=== PATIENT | male | born 1960 | race Caucasian/White ===

== ENCOUNTER 2016-11-28 08:32 | Day surgery (SDC) | payer OTHER ==
[2016-11-28] VITALS (10 sets, daily range): BP systolic 100–125; BP diastolic 74–84; PULSE 52–82; RESP 12–16; O2SAT 96–100
[~2016-11-28] VITALS: Ht 182.9 cm; Wt 109.9 kg
--- NOTE | 2016-11-28 07:23 | PCM.HPANE ---
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-, thinks possible now) Medications Blood Thinner: Coumadin, Lovenox Hypertension Medication: No Home Meds Incl Beta Liam: No Active Scripts Warfarin Sodium 5 Mg Tablet5 Mg PO DAILY #14 TABLET Ref 0 Prov:Ghazal Wood DO 07/16/16 Reported Medications Prednisone (PredniSONE)10 Mg [id number] Mg PO DAILY PRN For Pain Ref 0 11/28/16 Enoxaparin (Lovenox)120 Mg/0.8 Ml [id number] Mg SUBQ BID Ref 0 11/24/16 History History of ENT Problems?: No HEENT History: Denies:: Abnormal Airway Difficult Intubation Dysphagia Hearing Problem Sinus Problem TMJ Denture Type: None Teeth Condition: Within Normal Limits Hx of Heart Problems?: Yes Cardiovascular History: Positive for:: Thrombophlebitis (recently 06/2016 ending in PE both lungs) Denies:: Chest Pain Congestive Heart Failure Heart Murmur Hypertension Pacemaker Rheumatic Fever Valvular Heart Disease Hx of Respiratory Problem?: Yes Respiratory History: Positive for:: Use of C-PAP Machine Denies:: Asthma COPD Dyspnea (only with PE) Emphysema Hemoptysis Oxygen Administration Tuberculosis Use of Inhalers / NEBS Hx Neurologic Problems?: No Neurological History: Denies:: Alzheimer's Disease CVA Dementia Dizziness Headaches Multiple Sclerosis Parkinson's Disease Seizures Hx of GI Problems?: Yes Other GI Pertinent History: hx of lap band 2007 Hx of Problems?: Yes Genitourinary History: Denies:: HX of Hemodialysis Kidney Stones Urinary Tract Infection Other Pertinent History: hematuria current admission problem, kidney mass on left being investigated Male Hx: Denies:: Prostate Problems Scrotal Mass Testicular Surgery Skin History: Denies:: History Skin Disorders? Pressure Ulcers Hx Musculoskeletal Problems?: Yes Musculoskeletal History: Positive for:: Back Injury (back surgery L5 25 years ago) Joint Replacement (total knee replacement right knee) Musculoskeletal Trauma (plantar faciitis left ankle ) Hx of Psycho/Social Problems?: No Psycho Social History: Denies:: Anxiety Bipolar Disorder Hx Depression Hx Surgeries?: Yes (lap band, shoulder, ankle, back surgery) Hx Any Other Health Problems?: Yes Other History: Positive for:: Cancer (kidney being investigated) Hospitalization (surgeries PE) Denies:: Endocrine Disease Thyroid Disease History Blood Transfusions: Positive for:: Accept Blood Products? Denies:: Blood Transfusions Hx Diabetes: No Hx Alcohol Use: YesAlcoholic Drinks Per Day: 3-4 weeklyHx Substance Use: No Smoking Status: Never Smoker Have You Smoked inLast 12 mo: No Stop/Bang S-Snoring: Do You Snore Loudly: No T-Tired: feel tired, fatigued: Yes O-Obsered: Observed not breath: Yes P-Blood Pressure: treated: No B- Body Mass Index > 35 kg/m2: No A- Age over 50: Yes N- Neck Large Circumference: No G- Gender Male: Yes SUAD Total Score: 4 SUAD Risk Assessment: High Risk, =/>3 Yes SUAD Category 4 OutPt Procedure: Yes Risk Assessment Category Category 1A: Patient has history of documented sleep apnea, and HAS NOT received any narcotic, sedative or anesthesia administration during this stay. Category 1B: Patient has history of documented sleep apnea, and HAS received any narcotic , sedative or anesthesia administration during this stay Category 2: Patient has SUSPECTED Obstructive Sleep Apnea, and HAS received any narcotic , sedative or anesthesia administration during this stay. Category 3: Patient has SUSPECTED Obstructive Sleep Apnea and HAS NOT received narcotic, sedative or anesthesia administration during this stay. Category 4: Outpatient in Procedural Areas with known sleep apnea or who screen positive for High Risk via the STOP/BANG questionnaire. Exam Exam General Appearance: Alert, Oriented X3, Cooperative, No Acute Distress HEENT/AIRWAY: MP 2 Lungs: Clear to Auscultation, Normal Air Movement Heart: Exam Unremarkable, Regular Rate/Rhythm, No Murmurs/Rubs/Gallops Plan Impression Patient chart reviewed, patient interviewed and anesthestic plan with risks, benefits, and alternatives discussed, and informed consent obtained. ASA Physical Status: ASA2 Mod Systemic Disease Anesthetic Plan: GA Bene/Risks/Altern/Consents: Yes HP Complete Prior to Induction: Yes Michael Samayoa MD November 28, 2016 07:23
[~2016-11-28 08:32] MED LIST: Acetaminophen IV 1,000 MG in IV Premix 1 EACH IV ONE; CeFAZolin Inj 2 GM in IV Premix 1 EACH IV ONE; LOV120 SUBQ; Lactated Ringer's 1,000 ML IV ONE; WARF5TAB7 PO
[2016-11-28] MEDS ORDERED: fentaNYL-PF 50 mCg/mL 2 mL Inj ONE (08:33)
[2016-11-28] MEDS ORDERED: Propofol 10,000 mCg/mL 20 mL Inj ONE (08:33)
[2016-11-28] MEDS ORDERED: Dexamethasone 4 mg/mL Inj ONE (08:33)
[2016-11-28] MEDS ORDERED: Ondansetron 2 mg/mL 2 mL Inj ONE (08:33)
[2016-11-28] MEDS ORDERED: PRE10 PO (08:52)
[2016-11-28] MEDS ORDERED: Mitomycin Inj 20 MG in Syringe 1 EACH IRRIGATION ONE (08:55)
[2016-11-28] MEDS ORDERED: Belladonna Alk-Opium 60 mg Rectal Suppository RECTAL ONE (10:35)
[2016-11-28] MEDS ORDERED: Lactated Ringer's 1,000 ML IV SCH (10:48)
[2016-11-28] MEDS ORDERED: Lactated Ringer's 500 ML IV PRN (10:48)
[2016-11-28] MEDS ORDERED: MetoCLOpramide 5 mg/mL 2 mL Inj IVPUSH PRN (10:50)
[2016-11-28] MEDS ORDERED: HYDROmorphone 1 mg/mL Inj IVPUSH PRN (10:50)
[2016-11-28] MEDS ORDERED: Phenylephrine 10,000 mCg/mL Inj IVPUSH PRN (10:50)
[2016-11-28] MEDS ORDERED: fentaNYL-PF 50 mCg/mL 2 mL Inj IVPUSH PRN (10:50)
[2016-11-28] MEDS ORDERED: EPHEDrine Sulfate 50 mg/mL Inj IVPUSH PRN (10:50)
[2016-11-28] MEDS ORDERED: Ondansetron 2 mg/mL 2 mL Inj IVPUSH PRN (10:50)
[2016-11-28] MEDS ORDERED: Dexamethasone 4 mg/mL Inj IVPUSH PRN (10:50)
--- NOTE | 2016-11-28 15:54 | PCM.ANEP1 ---
Post Anesthesia Phase 1 PACU Phase 1 Assessment Vital Signs Vital Signs Date Time Temp Pulse Resp B/P Pulse Ox O2 Delivery O2 Flow Rate FiO2 11/28/16 12:56 36 55 16 100/74 99 Room Air 11/28/16 11:50 36.1 60 13 118/76 97 Room Air 11/28/16 11:45 52 12 118/76 100 Room Air 11/28/16 11:30 56 12 123/76 99 Nasal Cannula 2 11/28/16 11:25 36.0 59 12 119/83 99 Nasal Cannula 2 11/28/16 11:20 57 12 120/84 99 Nasal Cannula 2 11/28/16 11:15 62 12 123/81 97 Nasal Cannula 4 11/28/16 11:10 68 13 114/74 97 Nasal Cannula 4 11/28/16 11:05 36.1 82 13 115/81 96 Nasal Cannula 4 11/28/16 08:54 36.4 69 16 125/84 98 Room Air 11/28/16 08:54 CPAP/BIPAP Anesthetic Administered: GA Level of Alertness: Awake, talking LARRY's with Equal Strength: Yes Pain: No Nausea or Vomiting: No Oxygen Delivery: Nasal Cannula Lungs: Clear to Auscultation Dermatome Level: Full Sensation Complications: No Follow up Care: No Patient Instructions Provided: Yes Michael Samayoa MD November 28, 2016 15:54
--- NOTE | 2016-11-29 01:42 | OP ---
[address] [address] OPERATIVE REPORT PATIENT: LOGAN ESCALANTE : 1960 MR#: [id number] ADMIT: 11/28/2016 JOB ID: [id number] DATE OF SURGERY: 11/28/2016 PREOPERATIVE DIAGNOSIS(ES): 1. 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 2. History of hematuria. POSTOPERATIVE DIAGNOSIS(ES): 1. 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 2. History of hematuria. OPERATION PERFORMED: 1. Cystoscopy, bladder biopsy, and transurethral resection of bladder tumor. 2. Installation mitomycin-C (20 mg suspended in 20 cc normal saline). SURGEON: Luis Brown MD ANESTHESIOLOGIST: Michael Samayoa MD ANESTHESIA: General. FINDINGS: Urethra normal. External sphincter intact. Prostate 3.5 to 4 cm length with elevated median bar and obstruction. Bladder 1+ trabeculation. Normal orifices bilaterally. There is a low-grade papillary neoplasm emanating from the right anterior floor with spreading pattern circumferentially for up to 2 cm. The main lesion was cold cup resected and then the base also was cold cup resected. The entire area was cautery destroyed with superficial neoplasm destruction and hemostasis. PROCEDURE SUMMARY: The patient was positioned in supine and was administered general anesthetic. He was repositioned in semi-lithotomy, and lower abdomen, genitalia and groin were prepped and draped in sterile fashion. The 25-Welsh resectoscope was then passed in the lower urinary tract with findings as described above. He was then fitted with cold cup biopsy forceps and account executive sales representative samples were obtained as described above and submitted with biopsy for routine gross and microscopic examination. Next, working element was threaded with the button and the resected tumor base and circumferential tissue were cautery destroyed further. All abnormal appearing urothelium was cautery destroyed. Hemostasis of the margins were obtained via electrocautery. Tissue fragments were labeled as the sites of material and sent to pathology for routine gross and microscopic examination. The bladder was then left partially filled while instrumentation was removed. A 2-Welsh catheter was then inserted. Balloon was inflated to 10 cc and was placed to gravity drainage. Once the bladder contents had drained, 20 mg of mitomycin-C suspended in 20 cc of saline were then instilled in the bladder via the catheter and anticipated two-hour postoperative retention of the mitomycin-C.
--- NOTE | 2016-12-02 17:05 | PATH ---
SURGICAL PATHOLOGY Attending Physician:Luis Brown MD CASE STATUS: Signed Out PATIENT NAME: LOGAN ESCALANTE PID: [id number] : 1960 DATE COLLECTED:11/28/2016 18:24 SPECIMEN: 1: Bladder, Biopsy 2: Bladder, Biopsy CLINICAL HISTORY: BLADDER CANCER 1). RIGHT BLADDER FLOOR 2). BASE OF BLADDER FINAL DIAGNOSIS: 1. Right Bladder Floor, Biopsy: Malignant neoplasm with the following characteristics: Tumor type: Carcinoma. Histologic type: Urothelial Histologic grade: Low grade. Muscularis propria (detrusor muscle): Present and negative for tumor. Microscopic tumor extension: Negative for invasion into lamina propria or muscularis propria. Lymphovascular invasion: Not identified. Associated epithelial lesion: Not identified. Procedure: Biopsy, not otherwise specified. 2. Base of Bladder, Biopsy: Malignant neoplasm with the following characteristics: Tumor type: Carcinoma. Histologic type: Urothelial Histologic grade: Low grade. Muscularis propria (detrusor muscle): A small focus is present and is negative for tumor. Microscopic tumor extension: Negative for invasion into lamina propria or muscularis propria. Lymphovascular invasion: Not identified. Associated epithelial lesion: Not identified. Procedure: Biopsy, not otherwise specified. ICD10: C67.9 GROSS DESCRIPTION: The specimen is received in two formalin filled containers labeled with the patient's name. 1). The specimen is sublabeled "right bladder floor" and consists of multiple portions of tissue which aggregate to 0.4 x 0.4 x 0.3 CM. The specimen is entirely submitted in cassettes 1A. 2). The specimen is sublabeled "base of bladder" and consists of a 0.3 x 0.2 x 0.2 CM portion of tissue which is entirely submitted in cassette 2A. 11/28/2016 [facility] ICD-9 CODES: CPT CODES: 1: 00119 2: 70445 Electronically Signed Out Luba Ludwig MD [facility] Pathology [facility] [address], [place] [address] Technical component performed at [facility], [facility] [address], [place], [address]
[2016-12-30] MEDS ORDERED: PRE10 PO (15:54)
[2016-12-30] MEDS ORDERED: WARF5TAB7 PO (15:54)
[2016-12-30] MEDS ORDERED: TAMS0.4C98 PO (15:54)
== END 2016-11-28 23:59 | disposition home or self-care (01) ==
LOC: SAS 08:32
PROVIDERS: ATTEND Specialist
DX: C67.0 Malignant neoplasm of trigone of bladder (principal); R31.9 Hematuria, unspecified; N40.0 Benign prostatic hyperplasia without lower urinary tract symptoms; I82.501 Chronic embolism and thrombosis of unspecified deep veins of right lower extremity; Z79.01 Long term (current) use of anticoagulants
CPT/HCPCS: 52234; J0131; J0690; J1100; J2250; J2405; J3010; J7120

== ENCOUNTER 2016-12-07 18:02 | Emergency (ER) | payer OTHER ==
[~2016-12-07] VITALS: Ht 182.9 cm; Wt 110.0 kg
[~2016-12-07 18:02] MED LIST changes: -Acetaminophen IV 1,000 MG in IV Premix 1 EACH IV ONE; -CeFAZolin Inj 2 GM in IV Premix 1 EACH IV ONE; -Lactated Ringer's 1,000 ML IV ONE; +PRE10 PO
[2016-12-07 18:13] VITALS: BP 144/83; PULSE 79; RESP 16; O2SAT 97
--- NOTE | 2016-12-07 19:59 | ED.REPORT ---
HPI-Abd Pain M 40 and Over Date of Service December 07, 2016 ED Provider: Trevor Burton MD Patient is a who had bladder surgery for a cancer resection on 11/28/16 who presents to ED complaining of hematuria onset last night. He denies abdominal pain. Patient reports that he bled for a day after the surgery but that it stopped and began again last night. The patient saw his primary care physician earlier who recommended he come to the ED. He is currently taking Lovenox. Nursing Notes Stated Complaint: INTERNAL BLEEDING PER CANCER DR Chief Complaint: Male Abdominal Pain Nursing Notes Reviewed: Yes Allergies: Coded Allergies: No Known Allergies (Unverified , 11/28/16) Scheduled Enoxaparin (Lovenox) 120 Mg/0.8 Ml Syringe 120 MG SUBQ BID Warfarin Sodium (Warfarin Sodium) 5 Mg Tablet 5 MG PO DAILY Scheduled PRN Prednisone (PredniSONE) 10 Mg Tablet 10 MG PO DAILY PRN PRN For Pain General Time Seen by MD: 19:55 Chief Complaint Other (hematuria) Hx Obtained From: Patient Arrived By: Walk-in Sudden in Onset?: Yes Onset Occurred: Yesterday Symptom Duration: Since onset Recent Healthcare: Recent doctor visit, Recent hospitalization Similar Sx Previous: No Past Medical History Past Medical History PE in both lungs Past Surgical History bladder surgery for cancer right knee replacement back surgery lap band ankle surgery Smoking History Never Smoker Social History Alcohol Use: "Social" Drug Use: Denies drug use Ambulatory Status Independent Review of Systems Respiratory: Denies: Non-productive cough, Shortness of breath GI: Denies: Abdominal pain Male: Reports Hematuria Complete sys rev & neg: except as marked. Physical Exam Initial Vital Signs Vital Signs (First) Date Time Temp Pulse Resp B/P Pulse Ox O2 Delivery O2 Flow Rate FiO2 12/07/16 18:13 37.8 79 16 144/83 97 Room Air Initial VS: Reviewed General/Constitutional: Awake, Alert, No acute distress Respiratory / Chest: Atraumatic, Breath sounds NL, Breath sounds = bilat, No respiratory distress Cardiovascular: Heart rate NL, Regular rhythm, Heart sounds NL Abdomen: Atraumatic, Soft, Non-tender, No distention Back: Atraumatic, Full range of motion Head / Eyes: Atraumatic, Normocephalic, PERRL, EOMI Skin: Atraumatic, Color NL, No rash, Warm, Dry Male Genitourinary: Atraumatic, Inspection NL no urethral bleeding Neurologic: Oriented X3, Speech NL, No motor deficits, No sensory deficits Psychiatric: Affect NL, Mood NL Interpretation & Diagnostics Lab Results Interpretation Test 12/07/16 20:00 Hold Urine Received (Received) Re-Eval/Medical Decision Med Decision/Clinical Course 56-year-old male history of bladder cancer status post resection 2 weeks ago presenting with painless hematuria. He was told by his primary doctor to come in. He passed some clots earlier. He is voiding well. His urine is grossly bloody. His hemoglobin from this morning by primary doctor was 15. I discussed with urology who thought given normal postvoid residual of 43 and that he is making urine and voiding without difficulty may be discharged home plans to return if he is unable to void or any worsening abdominal pain. Is to follow-up with his primary doctor. Time of Eval: 20:24 Re-Evaluation/Progress Note: Discussed plan for discharge. The patient understands and agrees to the plan for discharge. All questions were addressed. Consultation : Consulted With: Urology Call Returned at: 20:16 Biomed Tech: Agrees with eval, Agrees with plan Note: Consult with Dr. Lala, urology, who recommends the patient be discharged, drink more fluids and return to the ED if he is unable to urinate. Counseled Regarding: Diagnosis, Lab results, Need for follow-up, When/why to return to ED Discharge & Departure Primary Impression: Hematuria Disposition: Home Vital Signs - All Vital Signs Date Time Temp Pulse Resp B/P Pulse Ox O2 Delivery O2 Flow Rate FiO2 12/07/16 18:13 37.8 79 16 144/83 97 Room Air )( All Prior VS Reviewed: Yes Condition: Stable Patient Instructions: Hematuria (GEN) Additional Instructions: Drink more fluids at home and rest. Follow up with your urologist next week. Please return to the emergency department if you develop any new or worsening symptoms including the inability to urinate. Referrals: Suleiman Noble MD (PCP) Larry Attestation Portions of this note were transcribed by Radha Cho. I, Dr. Derrek Wyatt personally performed the history, physical exam and medical decision-making; I reviewed and confirmed the accuracy of the information in the transcribed note. Signed by: Larry Lundy, 12/07/16 and 2018 copies to: Suleiman Noble MD, Ben M MD December 07, 2016 19:59 Lindy Cho December 07, 2016 20:20
[2016-12-30] MEDS ORDERED: PRE10 PO (15:54)
[2016-12-30] MEDS ORDERED: WARF5TAB7 PO (15:54)
[2016-12-30] MEDS ORDERED: TAMS0.4C98 PO (15:54)
== END 2016-12-07 21:01 | disposition home or self-care (01) ==
LOC: SED 18:02
DX: R31.9 Hematuria, unspecified (principal); Z98.890 Other specified postprocedural states; Z86.711 Personal history of pulmonary embolism; Z79.01 Long term (current) use of anticoagulants

== ENCOUNTER 2016-12-17 21:17 | Observation (INO) | payer OTHER ==
[~2016-12-17] VITALS: Ht 198.1 cm; Wt 110.1 kg
[2016-12-17 21:21] VITALS: BP 126/84; PULSE 86; RESP 16; O2SAT 97
--- NOTE | 2016-12-17 22:49 | ED.REPORT ---
HPI-Abd Pain M 40 and Over Date of Service December 17, 2016 ED Provider: Dr. Wyatt Pt is a 56 year old male with a hx of bladder cancer who was sent to the ED by his urologist with concerns for passing of large clots in his Watson catheter. Pt states that he is several weeks post-op for a mass removal from his bladder. He reports that he was unable to urinate several days ago and when he was able to urinate it was extremely painful and full of blood. He went to his urologist who placed a catheter yesterday. He states that he has noticed many large clots being passed, as well as blood leaking around the site of the catheter. He reports that he is taking Lovenox from previous PEs. He denies any dizziness, chest pain, shortness of breath or any other complaints. Nursing Notes Stated Complaint: INTERNAL BLEEDING/PASSING BLOOD CLOTS Chief Complaint: Male Abdominal Pain Nursing Notes Reviewed: Yes Allergies: Coded Allergies: No Known Allergies (Unverified , 12/18/16) Scheduled Enoxaparin (Lovenox) 120 Mg/0.8 Ml Syringe 120 MG SUBQ BID General Time Seen by MD: 22:49 Chief Complaint Urinary catheter pain Hx Obtained From: Patient Arrived By: Walk-in Sudden in Onset?: Yes Onset Occurred: More than a week ago... Symptom Duration: Since onset Location: : Diffuse Severity: Current: Mild Severity: Maximum: Severe Similar Sx Previous: Yes Past Medical History Past Medical History PE in both lungs Bladder cancer Past Surgical History bladder surgery for cancer right knee replacement back surgery lap band ankle surgery Smoking History Never Smoker Social History Alcohol Use: "Social" Drug Use: Denies drug use Ambulatory Status Independent Review of Systems Constitutional: Denies: Chills, Fever, Malaise, Weakness - generalized Respiratory: Denies: Non-productive cough, Shortness of breath, Wheezing Cardiovascular: Denies: Chest pain, Syncope GI: Denies: Abdominal pain, Constipation, Diarrhea, Nausea, Vomiting Male: Reports Dysuria, Reports Flank pain, Reports Hematuria Musculoskeletal: Denies: Back pain Complete sys rev & neg: except as marked. Physical Exam Initial Vital Signs Vital Signs (First) Date Time Temp Pulse Resp B/P Pulse Ox O2 Delivery O2 Flow Rate FiO2 12/17/16 21:21 36.7 86 16 126/84 97 Initial VS: Reviewed Head / Eyes: Atraumatic, Normocephalic, PERRL Skin: Warm, Dry, No cyanosis Neurologic: Alert, Oriented, Nonfocal General/Constitutional: Awake, Alert, No acute distress, Well appearing, Well developed Respiratory / Chest: Atraumatic, Breath sounds NL, Breath sounds = bilat Cardiovascular: Heart rate NL, Regular rhythm, Heart sounds NL, No gallop, No murmurs, No rubs Abdomen: Atraumatic, Soft, Non-tender Large amount of bright red blood with clots present in his catheter bag Back: Atraumatic, Inspection NL Interpretation & Diagnostics Lab Results Interpretation Result Diagram: 12/17/16 2345 12/17/16 2345 Test 12/17/16 23:45 White Blood Count 8.4th/mm3 (3.8-10.1) Red Blood Count 4.49mil/mm3 (4.40-5.80) Hemoglobin 12.7g/dL (13.8-17.2) Hematocrit 38.4% (41.0-50.0) Mean Corpuscular Volume 85.5fL (81-100) Mean Corpuscular Hemoglobin 28.3pg (27.0-35.0) Mean Corpuscular Hemoglobin Concent 33.1% (32.0-37.0) Red Cell Distribution Width 13.6% (12.3-15.4) Platelet Count 274bil/L (150-400) Neutrophils (%) (Auto) 49.2% (40-74) Lymphocytes (%) (Auto) 37.3% (14-46) Monocytes (%) (Auto) 10.8% (4-12) Eosinophils (%) (Auto) 1.7% (0-5) Basophils (%) (Auto) 0.5% (0-3) Prothrombin Time 9.5sec (8.1-12.5) Prothromb Time International Ratio 0.89ratio Activated Partial Thromboplast Time 30.4sec (22.8-33.0) Sodium Level 140mEq/L (134-144) Potassium Level 4.0mEq/L (3.5-5.2) Chloride Level 102mEq/L (97-108) Carbon Dioxide Level 25mmol/L (18-29) Blood Urea Nitrogen 13mg/dL (6-24) Creatinine 0.86mg/dL (0.76-1.27) Estimat Glomerular Filtration Rate 98mL/min (>59) Glucose Level 129mg/dL (60-99) Calcium Level 8.9mg/dL (8.5-10.1) Iron Level 40ug/dL (35-150) Total Iron Binding Capacity 334ug/dL (250-450) Percent Iron Saturation 12%sat (15-50) Unsaturated Iron Binding 294ug/dL Ferritin 67ng/mL (30-400) Total Bilirubin 0.3mg/dL (0.0-1.2) Aspartate Amino Transf (AST/SGOT) 24U/L (0-50) Alanine Aminotransferase (ALT/SGPT) 84U/L (0-44) Alkaline Phosphatase 43U/L (25-150) Total Protein 6.9g/dL (6.4-8.4) Albumin 4.1g/dL (3.4-5.0) Hold Bolton Top Tube Received (Received) Re-Eval/Medical Decision Med Decision/Clinical Course 56-year-old with a recent TURBT for bladder cancer, now obstructing his Watson with bleeding and clots. He is on Lovenox, with a prior history of DVT. A triple-lumen was placed and lavaged again. He is admitted to the hospital for ongoing lavage, discontinuation of his Lovenox, with SCDs to substitute. Discussed with Dr. Brown who will see him in consult as morning. Nothing by mouth status for possible cystoscopy later today, once the Lovenox has worn off. Source of Hx: Old records Time of Eval: 23:50 Re-Evaluation/Progress Note: Pt is rechecked and informed of his diagnosis and the plan to admit him at this time. He understands and agrees, all questions are addressed. Consultation #1: Referral / Consult Name: Luis Brown MD Consulted With: Urology Call Returned at: 00:23 Kennel Hand: Will see patient, Agrees with eval, Agrees with plan Consultation #2: Referral / Consult Name: Rah Robin MD Consulted With: Hospitalist Call Returned at: 00:30 Kennel Hand: Will see patient, Agrees with plan, Accepts admit Counseled Regarding: Diagnosis, Lab results, Need for admission Discharge & Departure Primary Impression: Hematuria Disposition: ADMITTED TO HOSPITAL Vital Signs - All Vital Signs Date Time Temp Pulse Resp B/P Pulse Ox O2 Delivery O2 Flow Rate FiO2 12/17/16 21:21 36.7 86 16 126/84 97 )( All Prior VS Reviewed: Yes Condition: Stable Referrals: Suleiman Noble MD (PCP) Alexibpreeti Attestation Portions of this note were transcribed by Marcia Devries. I, Dr. Wyatt personally performed the history, physical exam and medical decision-making; I reviewed and confirmed the accuracy of the information in the transcribed note. Signed by: Larry Hassan, 12/17/2016 [Time]. copies to: Suleiman Noble MD, Christopher W MD December 17, 2016 22:49 GISELL DEVRIES December 17, 2016 23:11
[2016-12-18 00:07] LABS: Mean Corpuscular Hemoglobin 28.3 pg (27.0-35.0); Mean Corpuscular Volume 85.5 fL (81-100)
[2016-12-18 00:08] LABS: BASOPHILS % (AUTO) 0.5 % (0-3); EOSINOPHILS % (AUTO) 1.7 % (0-5); MONOCYTES % (AUTO) 10.8 % (4-12); NEUTROPHILS % (AUTO) 49.2 % (40-74); Platelet Count 274 bil/L (150-400)
[2016-12-18 00:21] LABS: INR 0.89 ratio
--- NOTE | 2016-12-18 00:49 | PCM.HPMED ---
Subjective Date of Service December 18, 2016 Primary Provider: Admitting Physician: Primary Care Physician: Suleiman Noble MD Attending Physician: Admit Status: From the Emergency Department Chief Complaint: blood in urine History of Present Illness: 56-year-old man with past history remarkable for low-grade urothelial carcinoma of the bladder, left renal neoplasm of unknown behavior, bilateral pulmonary emboli likely secondary to hypercoagulable state presents with gross hematuria for more than one week. The patient had a procedure by urologist Dr. Brown on November 28 for his urothelial carcinoma and since that time the patient has had gross hematuria and states that he may have only had 4 normal appearing urinations. Approximately one week ago the patient began to notice difficulty with urination attributed to significant blood clot burden. The patient denies pain other than at his penis when passing blood clots. Dr. Brown saw the patient December 17 and recommended that he come in to be evaluated at [facility]. The patient has been on Lovenox and warfarin since being diagnosed with bilateral pulmonary emboli in June 2016. The patient was converted to Lovenox prior to the urologic procedure on November 28. The patient was recently being bridged back to warfarin however his oncologist believes with the upcoming procedures for his bladder cancer and left renal neoplasm he should remain on Lovenox only. Review of Systems: A comprehensive of the review of systems was obtained and all negative except for what is included in the history of present illness. Allergies Coded Allergies: No Known Allergies (Unverified , 12/18/16) Home Medications Enoxaparin 120 MG SUBQ BID Discontinued warfarin bridge at last oncology appointment 12/11 PMH hypercoagulable state with pulmonary emboli in both lungs and DVT low grade bladder urothelial carcinoma possible left sided renal cell carcinoma nonmelanoma skin cancer Central Sleep Apnea Surgical History bladder surgery for low grade urothelial carcinoma right knee reconstruction laminectomy lumbar back surgery Bariatric lap band surgery 2007 left ankle surgery shoulder surgery Family History Father had a stroke at 70yo and is still alive at 76yo Mother at 46yo due to esophageal perforation Sister 49yo healthy Son 27yo healthy Social History Occupation: general education professor auto sales Hx Alcohol Use: Yes Alcoholic Drinks Per Day: <1 Hx Substance Use: No Hx Tobacco Use: No Smoking Status: Never Smoker Living Arrangement: with Family ( 32years) Exam Vital Signs Vital Sign - Last Date Time Temp Pulse Resp B/P Pulse Ox O2 Delivery O2 Flow Rate FiO2 12/17/16 21:21 36.7 86 16 126/84 97 Exam GEN: Awake, alert, and in no acute distress HEENT: Atraumatic, Normocephalic, no sclera icterus, pale conjunctiva, moist mucous membranes Neck: Supple with full ROM, no JVD, no carotid bruits Respiratory: Clear to auscultation bilaterally without any wheezing rales or rhonchi noted Cardiovascular: Regular rate and rhythm at time of exam, with no murmurs, gallops or rubs appreciated Abdomen / GI: notable bruising in right lower quadrant, Soft with 2cm firm nodule in right upper quadrant under 3cm horizontal scar consistent with prior lap band procedure, Non-tender, normoactive bowel sounds Skin: Warm, Dry, and intact Neurologic: Alert, Oriented, Nonfocal Psychiatric: Mood/affect normal, Behavior normal, Normal thought content Extremity: No edema, cyanosis or clubbing, pulses intact bilaterally at radial and dorsalis pedis : patel in place with gross hematuria Lab and Diagnostics Result Diagram: 12/17/16 2345 12/17/16 2345 X-Rays, CTs and MRIs CT ABDOMEN RENAL PROTOCOL IMPRESSION: 1. A 2.1 x 2.0 cm lobulated, hypoenhancing mass in the inferior pole of the left kidney, highly suspicious for renal cell carcinoma. 2. A 7 mm exophytic nodule in the superior pole of the right kidney demonstrates mild enhancement. Because of small size, this nodule could be a small complex cyst or solid mass. 3. No evidence for jamila or distant metastasis. 4. Scattered colonic diverticula. No evidence for acute diverticulitis. 5. Small hiatal hernia. Dictated by: Vijay Chan M.D. on 11/17/2016 at 8:18 Approved by: Vijay Chan M.D. on 11/17/2016 at 8:33 Assessment & Plan 56-year-old man with past history remarkable for low-grade urothelial carcinoma of the bladder, left renal neoplasm of unknown behavior, bilateral pulmonary emboli likely secondary to hypercoagulable state presents with gross hematuria for more than one week. 1) acute hematuria - Hgb 12.7 - history of recent cystoscopy procedure November 28 and diagnosis of low grade urothelial carcinoma - patient also has imaging showing a [id number] left renal mass possibly consistent with renal cell carcinoma - hold lovenox - nursing order for continual bladder flush through a [address] in [address] - Urology Dr. Brown consulted from ED will see patient in the AM - Patient is NPO until seen by surgery in the AM - UA ordered and pending 2) low grade urothelial carcinoma, stable - being followed by oncology Dr. Woods 3) bilateral pulmonary emboli, chronic - likely due to hypercoagulable state given multiple neoplasm - patient has been on anticoagulation since being diagnosed in June approximately 6 months ago - hold Lovenox until after urologic procedure 12/18 - patient likely to remain on anticoagulation lobsterman until resolution of oncologic processes - being followed by oncology Dr. Woods 4) left renal neoplasm of unknown behavior, stable - patient to have an MRI further evaluation on MondayDecember 21 - Urology Dr. Brown following - being followed by oncology Dr. Woods 5) obstructive sleep apnea, chronic - O2 monitoring 6) acute blood loss anemia, stable - anemia panel with ferritin, iron, TIBC Patient is admitted for observation status given the current primary diagnosis the necessary required treatments and any possible complications expected length of stay is less than 2 nights. Pain Evaluation: Adequate Pain Control GI Prophylaxis: Not indicated VTE Prophylaxis Indicated: Contraindicated VTE Mechanical Devices: Intermittant Pneumatic CD Resuscitation Status: CPR: Attempt Resuscitation Attending Statement The patient was seen and examined together with Dr. Mares on 12/18 and I agree with the history, exam and plan as outlined in the note above. Yair Mares DO December 18, 2016 00:49 Rah Robin MD December 18, 2016 03:32
[2016-12-18] MEDS ORDERED: Ondansetron 2 mg/mL 2 mL Inj IVPUSH PRN (01:00)
--- NOTE | 2016-12-18 02:24 | NUR ---
admission patient admitted to room 3020. oriented to room and call light. tv and phone. ambulates independently. steady gait. [address] way patel irrigant is patent. light hernandez red urine patent to patel bag. secured catheter with cath secure. meatus of penus is very tender to touch. blood leaking from it when ambulatory. patient in and out of bathroom frequently, passing flatus, constipated. npo. reviewed fall precautions. verbalized understanding.
[2016-12-18 02:30] VITALS: BP 123/78; PULSE 60; RESP 18; O2SAT 98
[2016-12-18 03:39] LABS: Unsaturated Iron Binding 294 ug/dL
--- NOTE | 2016-12-18 05:00 | NUR ---
bladder irrigant patient had 6000 bladder irrigant in 6800 output to patel. the difference is 800 out.
--- NOTE | 2016-12-18 06:38 | NUR ---
bladder irrigation bladder irrigant slowed to a stop. irrigated multiple times with saline and piston syringe. irrigation now patent. pale urine to bag patient has alot of discomfort at the meatus of the penis. any movement of the catheter and he shows signs of increased pain. notified night resident. asked for lidocaine jelly.
[2016-12-18] MEDS ORDERED: Lidocaine 2% 6mL Topical Jelly TOPICAL ONE (06:40)
--- NOTE | 2016-12-18 12:40 | NUR ---
Bladder irrigation Bladder irrigation totals = 52658 mls in [address]372 mls out. Initially out put was dark red, color has changed to light pink at this time, rate has been slowed to a drip. Pt is NPO, has no IV fluids ordered at this time. Pt awaiting Consult from Dr Brown for urology plan of care. Dr Luke notified of fluid discrepancy, new order generated for IV fluids. Call light in place, will continue to monitor. Addendum: 12/18/16 at 1946 by KWAKU OWENS RN [id number] bladder irrigant in - 11347 fluid out. Difference of 200.
[2016-12-18] MEDS ORDERED: D5 0.45% NaCl + KCl 20 mEq/L 1,000 ML IV ONE (12:50)
[2016-12-18 14:07] VITALS: BP 119/75; PULSE 72; RESP 18; O2SAT 95
[2016-12-18] MEDS ORDERED: Heparin 5,000 Unit/mL Inj IVPUSH PRN (14:30)
[2016-12-18] MEDS ORDERED: Heparin 25K Unit/500mL 0.45 NS 25,000 UNIT in IV Premix 1 EACH IV SCH (14:30)
[2016-12-18] MEDS ORDERED: Heparin 5,000 Unit/mL Inj IVPUSH ONE (14:30)
--- NOTE | 2016-12-18 14:31 | NUR ---
Social Work: Screening D: EMR reviewed. Pt is a 56 y/o male admitted for hematuria, patel obst post op per H&P. SW met with pt and family at bedside to conduct initial screening. Pt was alert and oriented x3. Pt's insurance is [facility] and PCP is Suleiman Noble MD. Pt's primary contact is spouse Linda Reis ([phone]) and can be contacted for discharge planning. SW provided pt with DPOA/advanced directive ppw at pt's request and encouraged pt to provide a copy to the hospital when complete. Pt lives at home with spouse in [place] and is independent at baseline. Pt's spouse will provide transport home via POV when pt is medically stable. SW does not anticipate any discharge needs at this time. SW will continue to follow if needs arise. A: Pt who is independent at baseline. P: Pt to discharge home with spouse via POV when medically stable. SW does not anticipate any discharge needs at this time. SW will continue to follow if needs arise. GRACIE Miller
[2016-12-18] MEDS: 0.9% Sodium Chloride 1,000 ML IV SCH (16:09)
[2016-12-18] MEDS: Belladonna Alk-Opium 60 mg Rectal Suppository RECTAL PRN ×2 (16:09→22:51)
[2016-12-18] MEDS ORDERED: SODIUM CHLORIDE 0.9% IV ONE ×2 (16:40→18:00)
[2016-12-18] MEDS ORDERED: AMINOCAPROIC ACID IV ONE ×2 (16:40→18:00)
[2016-12-18] MEDS: SODIUM CHLORIDE 0.45% IV SCH (17:55)
[2016-12-18] MEDS: HEPARIN IV SCH (17:55)
--- NOTE | 2016-12-18 18:30 | NUR ---
Blood clots Pt has been complaining of pain/ bladder spasms. IV morphine and B&O suppository given with minimal relief. mechanical maintenance technician contacted, bladder irrigation clamped, Bladder vigorously irrigated with sterile saline, Multiple lentil sized blood clots passed. Pt felt some relief. Bladder irrigation re-started, will continue to monitor.
--- NOTE | 2016-12-18 20:16 | NUR ---
medication clarification called dr brown RE administration of aminocaproic acid infusion. dr Dr Brown asked to be transferred to the pharmacy. transferred. Addendum: 12/18/16 at 2308 by JACK HERNANDEZ RN clarification of amicar infusion. spoke to cony the pharmacist regarding the administration of the amicar infusion with the heparin infusion (1600 ptt not therapeutic). cony advised that I speak with the hospitalist. spoke to Dr Reese who advised that i speak with the pharmacist. spoke again to jasen the pharmacist regarding the amicar infusion with the dvt prophylaxis heparin infusion. jasen the pharmacist advised to wait until the heparin infusion is therapeutic 2245 ptt heparin result: 64. notified jasen the pharmacist. she gave okay to start the amicar infusion. jasen the pharmacist called dr brown and updated him to the delay of the amicar infusion.
[2016-12-18 20:50] VITALS: BP 128/69; PULSE 64; RESP 20; O2SAT 97
--- NOTE | 2016-12-18 23:25 | NUR ---
bladder irrigation patient complains of intermittent bladder spasms. medicated with oxycodone and b and o suppository as documented. patient notes "good relief. i am going to try and get some sleep." rates spasms as a 1-2. per numeric scale. bladder irrigation running wide open. very very pale to clear urine. patient is uncomfortable if the bladder irrigation is any less than wide open. plan to cont to run irrigant wide open. care ongoing.
--- NOTE | 2016-12-18 23:42 | NUR ---
sleep apnea prophylaxis patient placed on 2 liter nc for hx of sleep apnea
[2016-12-19] VITALS (9 sets, daily range): BP systolic 106–156; BP diastolic 58–78; PULSE 56–85; RESP 12–18; O2SAT 95–98
[2016-12-19] MEDS: 0.9% Sodium Chloride 1,000 ML IV SCH ×2 (00:22→10:06)
--- NOTE | 2016-12-19 02:42 | PCM.PNMED ---
Subjective Date of Service December 18, 2016 Subjective Patient is seen and examined. States that his hematuria started a few weeks ago , intermittently getting worse. Never needed blood transfusions, however. His prescription for penile pain that is deep and nature, feels like pressure sensation. Was seeing clots intermittently. No clots in urine catheter, light pink urine is seen. He states that his renal cancer is found during the bladder surgery, no pathology biopsy is performed as yet. His oncologist, Dr. Woods is asked him to wait to restart Coumadin as he understands that he might have to have another surgery for his renal cancer he says he does not now and he is expected to have partial nephrectomy for a complete nephrectomy . He does note that the renal cancer has gone to both sides of his kidneys . He denies fevers and chills, nausea and vomiting . States that he gets the urge to urinate even though now he has a Patel catheter. He denies current dyspnea. No other concerns ( Exam Vital Signs Vital Sign - Last Date Time Temp Pulse Resp B/P Pulse Ox O2 Delivery O2 Flow Rate FiO2 12/18/16 02:30 36.7 60 18 123/78 98 Room Air Intake and Output 12/17/16 12/17/16 12/18/16 Cumulative From/Thru 15:00 23:00 07:00 12/17/16 21:21 - 12/18/16 06:08 Intake Total 0 ml 0 ml Output Total 800 ml 800 ml Balance -800 ml -800 ml Intake Oral 0 ml 0 ml Output Urine Total 800 ml 800 ml Exam Gen.: No acute distress lying in bed. HEENT: Normocephalic, atraumatic Heart: Regular rate and rhythm and soft systolic murmur is present Lungs: Clear to auscultation Abdomen nontender to auscultation normal bowel sounds are present Extremities negative for edema neuro: Negative for focal deficits Psych: Negative for anxiety IVs and Medications IV Fluids D5 half normal saline with 20 mEq of potassium at 125 mL/h Medications Reviewed: Medications were reviewed in detail Lab and Diagnostics Result Diagram: 12/17/161 12/17/162344 X-Rays, CTs and MRIs CT ABDOMEN RENAL PROTOCOL IMPRESSION: 1. A 2.1 x 2.0 cm lobulated, hypoenhancing mass in the inferior pole of the left kidney, highly suspicious for renal cell carcinoma. 2. A 7 mm exophytic nodule in the superior pole of the right kidney demonstrates mild enhancement. Because of small size, this nodule could be a small complex cyst or solid mass. 3. No evidence for jamila or distant metastasis. 4. Scattered colonic diverticula. No evidence for acute diverticulitis. 5. Small hiatal hernia. Dictated by: Vijay Chan M.D. on 11/17/2016 at 8:18 Approved by: Vijay Chan M.D. on 11/17/2016 at 8:33 Assessment & Plan 56-year-old man with past history remarkable for low-grade urothelial carcinoma of the bladder, left renal neoplasm of unknown behavior, bilateral pulmonary emboli likely secondary to hypercoagulable state presents with gross hematuria for more than one week. 1) Acute hematuria - Hgb 12.7, trend H&H - history of recent cystoscopy procedure November 28 and diagnosis of low grade urothelial carcinoma - patient also has imaging showing a [id number] left renal mass possibly consistent with renal cell carcinoma - nursing order for continual bladder flush through a [address] in [address] - Urology Dr. Brown consulted from ED, discussing patient's management with him this a.m. near patient's room. He will be putting patient on belladonna alkaloids, he will be putting alum in the back for irrigation, says that it might help cauterize the lesion that may be causing the hematuria. States that surgery has postponed patient's cystoscopy due to busy schedule, she will be going on 12/19 - Patient is NPO after midnight - UA ordered and pending: Follow cultures 2) low grade urothelial carcinoma, stable - being followed by oncology Dr. Woods 3) bilateral pulmonary emboli, chronic - likely due to hypercoagulable state given multiple neoplasm - patient has been on anticoagulation since being diagnosed in June approximately 6 months ago - Urologic procedure has been postponed to 12/19, patient is started on heparin drip this patient is deemed high risk for thrombosis , with a stop them at 5 AM on 12/19 to allow enough time for this procedure. Nursing staff is communicated about this. Please verify that drip is stpped in the a.m. 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 Woods 4)renal neoplasm of unknown behavior, stable - patient to have an MRI further evaluation on MondayDecember 21 - Urology Dr. Brown following - being followed by oncology Dr. Woods 5) obstructive sleep apnea, chronic - O2 monitoring 6) acute blood loss anemia, stable - anemia panel with ferritin, iron, TIBC: Normal Patient is admitted for observation status given the current primary diagnosis the necessary required treatments and any possible complications expected length of stay is less than 2 nights. Pain Evaluation: Adequate Pain Control VTE Prophylaxis: Other (patient is currently on a heparin drip) VTE Mechanical Devices: Intermittant Pneumatic CD Resuscitation Status: CPR: Attempt Resuscitation Time spent 30 minutes Margaret Luke DO December 18, 2016 07:45
[2016-12-19] MEDS ORDERED: CeFAZolin 2 Gm/50 mL D5W IV Premix IV ONE (06:00)
[2016-12-19] MEDS: Belladonna Alk-Opium 60 mg Rectal Suppository RECTAL PRN (06:05)
[2016-12-19] MEDS: SODIUM CHLORIDE 0.45% IV SCH (06:06)
[2016-12-19] MEDS: HEPARIN IV SCH (06:06)
--- NOTE | 2016-12-19 06:44 | PCM.HPANE ---
Patient Data Surgeon Admitting Provider:Rah Robin MD Attending Provider:Rah Robin MD Primary Care Physician:Suleiman Noble MD Other Provider:Ector Hanna Anesthesia Reason for Visit Hematuria, Watson Obst Post Op Ht/WT & BMI Height (Feet): 6 Height (Inches): 6.00 Weight (Kilograms): 110.100 Body Mass Index 28.08 Allergies Coded Allergies: No Known Allergies (Unverified , 12/18/16) Past Anesthesia History Anesthesia History: Denies:: Abnormal Airway, Anesthesia Reactions, Difficult Intubation, Fam Anesthesia Reaction Diabetes History Hx Diabetes?: No MRSA MRSA: Yes (hx of more than 5 years ago-, thinks possible now) Medications Blood Thinner: Coumadin, Lovenox Reported Medications Enoxaparin (Lovenox)120 Mg/0.8 Ml [id number] Mg SUBQ BID Ref 0 11/24/16 Discontinued Reported Medications Prednisone (PredniSONE)10 Mg Vuxcte21 Mg PO DAILY PRN For Pain Ref 0 11/28/16 Discontinued Scripts Warfarin Sodium 5 Mg Tablet5 Mg PO DAILY #14 TABLET Ref 0 Prov:Ghazal Wood DO 07/16/16 History History of ENT Problems?: No HEENT History: Denies:: Abnormal Airway Difficult Intubation Dysphagia Hearing Problem Sinus Problem TMJ Denture Type: None Teeth Condition: Within Normal Limits Hx of Heart Problems?: No Cardiovascular History: Positive for:: Thrombophlebitis (recently 06/2016 ending in PE both lungs) Denies:: Chest Pain Congestive Heart Failure Heart Murmur Hypertension Pacemaker Rheumatic Fever Valvular Heart Disease Hx of Respiratory Problem?: Yes Respiratory History: Positive for:: Dyspnea Use of C-PAP Machine Denies:: Asthma COPD Emphysema Hemoptysis Oxygen Administration Tuberculosis Other Resp Pertinent History: history of bilateral pulmonary emboli Hx Neurologic Problems?: No Neurological History: Denies:: Alzheimer's Disease CVA Dementia Dizziness Headaches Multiple Sclerosis Parkinson's Disease Seizures Hx of GI Problems?: No Hx of Problems?: Yes Genitourinary History: Denies:: HX of Hemodialysis Kidney Stones Urinary Tract Infection HX of Peritoneal Dialysis: No Other Pertinent History: renal ca history bladder cancer (surgical removal) Male Hx: Denies:: Prostate Problems Scrotal Mass Testicular Surgery Skin History: Denies:: History Skin Disorders? Pressure Ulcers Hx Musculoskeletal Problems?: Yes Musculoskeletal History: Positive for:: Back Injury (back surgery L5 25 years ago) Joint Replacement (total knee replacement right knee) Musculoskeletal Trauma (plantar faciitis left ankle ) Hx of Psycho/Social Problems?: No Psycho Social History: Denies:: Anxiety Bipolar Disorder Hx Depression Suicide Attempt Hx Surgeries?: Yes (lap band, shoulder, ankle, back surgery, knee surgery) Hx Any Other Health Problems?: Yes Other History: Positive for:: Cancer (kidney and bladder) Hospitalization (surgeries PE) Denies:: Endocrine Disease Thyroid Disease History Blood Transfusions: Positive for:: Accept Blood Products? Denies:: Blood Transfuse Reaction Blood Transfusions Hx Diabetes: No Other Pertinent History: removal of bladder mass Occupation: general labor auto sales Hx Alcohol Use: YesAlcoholic Drinks Per Day: <1 Hx Substance Use: No Smoking Status: Never Smoker Have You Smoked inLast 12 mo: No Stop/Bang Treated for Sleep Apnea?: Yes Do You Have a CPAP Machine?: Yes (yes at home) S-Snoring: Do You Snore Loudly: No T-Tired: feel tired, fatigued: No O-Obsered: Observed not breath: No P-Blood Pressure: treated: No B- Body Mass Index > 35 kg/m2: No A- Age over 50: No N- Neck Large Circumference: No G- Gender Male: No SUAD Total Score: 0 SUAD Risk Assessment: Low Risk, <3 Yes Risk Assessment Category Category 1A: Patient has history of documented sleep apnea, and HAS NOT received any narcotic, sedative or anesthesia administration during this stay. Category 1B: Patient has history of documented sleep apnea, and HAS received any narcotic , sedative or anesthesia administration during this stay Category 2: Patient has SUSPECTED Obstructive Sleep Apnea, and HAS received any narcotic , sedative or anesthesia administration during this stay. Category 3: Patient has SUSPECTED Obstructive Sleep Apnea and HAS NOT received narcotic, sedative or anesthesia administration during this stay. Category 4: Outpatient in Procedural Areas with known sleep apnea or who screen positive for High Risk via the STOP/BANG questionnaire. Exam Exam Vital Signs Vital Signs Date Time Temp Pulse Resp B/P Pulse Ox O2 Delivery O2 Flow Rate FiO2 12/19/16 04:49 36.5 56 18 106/63 97 Room Air General Appearance: Alert, Oriented X3, Cooperative, No Acute Distress HEENT/AIRWAY: MP 2 Lungs: Clear to Auscultation, Normal Air Movement Heart: Exam Unremarkable, Regular Rate/Rhythm, No Murmurs/Rubs/Gallops Meds/Labs/Diagnostics Admission Meds Current Medications Potassium Chloride/Dextrose/ Sod Cl (Dextrose 5% 0.45% NaCl + KCl 20 mEq/L) 1, 000 ml @ 125 mls/hr Q8H ONCE IV Last administered on 12/18/16 13:05; Start at 12:50; Stop 12/18/16 at 14:32; Status DC Heparin Sodium (Porcine) 8800 unit 8,800 unit ONCE ONCE IVPUSH Last administered on 12/18/16 16:43; Start 12/18/16 at 14:30; Stop 12/18/16 at 14:47 ; Status DC Sodium Chloride 1,000 ml @ 100 mls/hr Q10H IV Last administered on 12/19/16 00:22; Start 12/18/16 at 14:30 Aminocaproic Acid 5000 mg/Sodium Chloride 270 ml @ 270 mls/hr OT ONCE IV Last administered on 12/18/16 23:09; Start 12/18/16 at 16:40; Stop 12/18/16 at 17:39; Status DC Aminocaproic Acid 8000 mg/Sodium Chloride 532 ml @ 66.5 mls/hr OT ONCE IV Last administered on 12/19/16 00:19; Start 12/18/16 at 18:00; Stop 12/19/16 at 01:59; Status DC Heparin Sodium (Porcine)/Sodium Chloride (Heparin/1/2 Normal Saline) 525 ml @ 0 mls/hr Q0M IV Last administered on 12/19/16 06:06; Start 12/18/16 at 16:45 Labs Test 12/17/16 23:45 12/18/16 13:05 12/18/16 22:25 White Blood Count 8.4th/mm3 (3.8-10.1) Red Blood Count 4.49mil/mm3 (4.40-5.80) Mean Corpuscular Volume 85.5fL (81-100) Mean Corpuscular Hemoglobin 28.3pg (27.0-35.0) Mean Corpuscular Hemoglobin Concent 33.1% (32.0-37.0) Red Cell Distribution Width 13.6% (12.3-15.4) Platelet Count 274bil/L (150-400) Neutrophils (%) (Auto) 49.2% (40-74) Lymphocytes (%) (Auto) 37.3% (14-46) Monocytes (%) (Auto) 10.8% (4-12) Eosinophils (%) (Auto) 1.7% (0-5) Basophils (%) (Auto) 0.5% (0-3) Prothrombin Time 9.5sec (8.1-12.5) Prothromb Time International Ratio 0.89ratio Sodium Level 140mEq/L (134-144) Potassium Level 4.0mEq/L (3.5-5.2) Chloride Level 102mEq/L (97-108) Carbon Dioxide Level 25mmol/L (18-29) Blood Urea Nitrogen 13mg/dL (6-24) Creatinine 0.86mg/dL (0.76-1.27) Estimat Glomerular Filtration Rate 98mL/min (>59) Glucose Level 129mg/dL (60-99) Calcium Level 8.9mg/dL (8.5-10.1) Iron Level 40ug/dL (35-150) Total Iron Binding Capacity 334ug/dL (250-450) Percent Iron Saturation 12%sat (15-50) Unsaturated Iron Binding 294ug/dL Ferritin 67ng/mL (30-400) Total Bilirubin 0.3mg/dL (0.0-1.2) Aspartate Amino Transf (AST/SGOT) 24U/L (0-50) Alanine Aminotransferase (ALT/SGPT) 84U/L (0-44) Alkaline Phosphatase 43U/L (25-150) Total Protein 6.9g/dL (6.4-8.4) Albumin 4.1g/dL (3.4-5.0) Hold Bolton Top Tube Received (Received) Hemoglobin 11.6g/dL (13.8-17.2) Hematocrit 34.6% (41.0-50.0) Activated Partial Thromboplast Time 63.9sec (22.8-33.0) Plan Impression Patient chart reviewed, patient interviewed and anesthestic plan with risks, benefits, and alternatives discussed, and informed consent obtained. NPO per Anesth. Guidelines: Yes ASA Physical Status: ASA2 Mod Systemic Disease Anesthetic Plan: GA Bene/Risks/Altern/Consents: Yes HP Complete Prior to Induction: Yes Chante Camejo MD December 19, 2016 06:44
--- NOTE | 2016-12-19 07:17 | NUR ---
bladder irrigation bladder irrigation ran through the night without problems. patient had a total surplus of 700 urine out. medicated for intermittent bladder spasm and meatus discomfort with oxycodone and b/0 suppository as documented. npo since midnight called Pipe Testing Technician at 0600, a scheduled time is not yet known for the procedure, so i am unable to know when to start tohold the heparin gtt (as per dr messina note). tenzin the day rn will check into this.
[2016-12-19 07:27] LABS: INR 0.94 ratio
[2016-12-19 07:30] LABS: BASOPHILS % (AUTO) 0.3 % (0-3); EOSINOPHILS % (AUTO) 1.9 % (0-5); MONOCYTES % (AUTO) 11.2 % (4-12); Mean Corpuscular Hemoglobin 28.4 pg (27.0-35.0); Mean Corpuscular Volume 86.9 fL (81-100); NEUTROPHILS % (AUTO) 55.5 % (40-74); Platelet Count 200 bil/L (150-400)
--- NOTE | 2016-12-19 07:42 | PROG NOTE ---
[address] [address] PROGRESS NOTE PATIENT: LOGAN ESCALANTE : 1960 MR#: [id number] ADMIT: 12/18/2016 JOB ID: [id number] DATE: 12/19/2016 SUBJECTIVE: The night was overall quiet. He did not sleep well due to disturbances. He has had intermittent bladder spasms reasonably managed with a belladonna and opium suppository. OBJECTIVE: Examination is unchanged. Outflow is a light hernandez. The rate is reduced, no clot. IMPRESSION: Recurrent bleeding and clot retention status post transurethral resection of bladder tumor in this gentleman with a recent diagnosis of DVT and pulmonary embolus with need for aggressive anticoagulant therapy. PLAN: Discussion, informed consent, and scheduling to OR today for cystoscopy and fulguration of resection bed.
--- NOTE | 2016-12-19 07:50 | CONS ---
[address] [address] CONSULTATION REPORT PATIENT: LOGAN ESCALANTE : 1960 MR#: [id number] ADMIT: 12/18/2016 JOB ID: [id number] DATE OF SERVICE: 12/18/2016 HISTORY OF PRESENT ILLNESS: The patient is a 56-year-old gentleman known well by me status post transurethral resection of bladder tumor approximately 2 weeks ago. He has recent health history of DVT and pulmonary embolus thought to be secondary to central sleep apnea and is currently under evaluation. At any rate, he is on warfarin anticoagulation and attempts to bridge him in the perioperative period with Lovenox 120 mg subcutaneous daily led to intermittent recurrent episodes of gross hematuria. I was contacted by him regarding the issues with painful clot passage. I directed him to [facility] where further evaluation revealed a subtherapeutic INR, and he was admitted to the hospitalist service for further evaluation and management of anticoagulant status and management. In the emergency department a 3-way catheter was placed and with a couple of incidents where hand irrigation was required it has otherwise remained patent at a fairly brisk clip. Allergies, past medical history, surgical, social, family, and review of systems are reflected in my admitting history and physical examination at the time of his TURBT as well as current admission by hospitalist service, reviewed by me. PHYSICAL EXAMINATION: He is currently resting comfortably in bed. No acute distress. Head and neck exam unremarkable. Chest equal, clear, and unlabored bilaterally. Heart rate is regular. Abdomen is obese, protuberant, bowel sounds are active. No focal quadrant tenderness. Genitalia Watson indwelling, outflow is light pink to light hernandez, no clots. Extremities no pallor, edema, clubbing, or cyanosis. IMPRESSION: Clot retention delayed status post transurethral resection of bladder tumor in this gentleman with current need to be on aggressive anticoagulant therapy. PLAN: Will try IV aminocaproic acid and if this does not provide satisfactory solution then discuss return to operating room for cauterization of resection bed.
--- NOTE | 2016-12-19 07:52 | NUR ---
Heparin Gtt Heparin gtt stopped, per order of Dr Brown, in anticipation of surgery. Will continue to monitor, call light with in reach.
--- NOTE | 2016-12-19 10:21 | NUR ---
Off the unit Pt taken off the unit to OR, SCDs in place, consent in chart, HAS NOT BEEN SIGNED, VSS. IV saline locked x2, Ancef with pt to be hung in the OR.
[2016-12-19] MEDS ORDERED: Lactated Ringer's 1,000 ML IV ONE (10:38)
[2016-12-19] MEDS ORDERED: Belladonna Alk-Opium 60 mg Rectal Suppository RECTAL ONE ×3 (11:18→11:54)
[2016-12-19] MEDS ORDERED: Ondansetron 2 mg/mL 2 mL Inj IVPUSH PRN ×2 (11:55→12:15)
[2016-12-19] MEDS ORDERED: Ketorolac 15 mg/mL Inj IVPUSH PRN (11:55)
[2016-12-19] MEDS ORDERED: Belladonna Alk-Opium 60 mg Rectal Suppository RECTAL PRN (11:55)
[2016-12-19] MEDS ORDERED: Acetaminophen IV 1,000 MG in IV Premix 1 EACH IV PRN (11:55)
[2016-12-19] MEDS ORDERED: HYDROmorphone 1 mg/mL Inj IVPUSH PRN (11:55)
[2016-12-19] MEDS ORDERED: MetoCLOpramide 5 mg/mL 2 mL Inj IVPUSH PRN ×2 (11:55→12:15)
[2016-12-19] MEDS ORDERED: Lactated Ringer's 1,000 ML IV SCH ×2 (11:55→12:13)
[2016-12-19] MEDS ORDERED: Polyethylene Glycol (PEG) 17 Gm Powder PO PRN (11:55)
[2016-12-19] MEDS ORDERED: fentaNYL-PF 50 mCg/mL 2 mL Inj ONE ×2 (12:10→17:44)
[2016-12-19] MEDS ORDERED: Lactated Ringer's 500 ML IV PRN (12:13)
--- NOTE | 2016-12-19 12:14 | PCM.ANEP1 ---
Post Anesthesia PACU Phase 1 Assessment Vital Signs Vital Signs Date Time Temp Pulse Resp B/P Pulse Ox O2 Delivery O2 Flow Rate FiO2 12/19/16 04:49 36.5 56 18 106/63 97 Room Air Anesthetic Administered: GA Level of Alertness: Awake, talking LARRY's with Equal Strength: Yes Pain: Yes (Level 7 - Bladder contractions) Pain Scale Score: 2 Nausea or Vomiting: No CV Function and Hydration: No Airway Device: Lungs: Clear to Auscultation, Normal Air Movement PACU Phase 2 Assessment Complications: No Follow up Care: No Patient Instructions Provided: N/A Chante Camejo MD December 19, 2016 12:14
[2016-12-19] MEDS ORDERED: Dexamethasone 4 mg/mL Inj IVPUSH PRN (12:15)
[2016-12-19] MEDS ORDERED: fentaNYL-PF 50 mCg/mL 2 mL Inj IVPUSH PRN (12:15)
[2016-12-19] MEDS ORDERED: Labetalol 5 mg/mL 4 mL Inj IV PRN (12:15)
[2016-12-19] MEDS ORDERED: EPHEDrine Sulfate 50 mg/mL Inj IVPUSH PRN (12:15)
[2016-12-19] MEDS ORDERED: Phenylephrine 10,000 mCg/mL Inj IVPUSH PRN (12:15)
[2016-12-19] MEDS ORDERED: Atropine 0.4 mg/mL Inj IVPUSH PRN (12:15)
[2016-12-19] MEDS: HYDROmorphone 1 mg/mL Inj IVPUSH PRN ×2 (12:36→12:45)
[2016-12-19] MEDS ORDERED: LORazepam 1 mg Tablet PO ONE (14:20)
[2016-12-19] MEDS ORDERED: LORazepam 2 mg Tablet PO ONE (14:20)
--- NOTE | 2016-12-19 14:33 | NUR ---
Arrival to 1022 Transfer from PACU at 1315. Pt is restless and c/o bladder spasms, perineal muscle spasms and urethral burning. Medicated with 5mg Perlita which was ineffective so 2nd tablet given. MD notified of pt arrival and restlessness, order received for Ativan; will continue to assess effectiveness of this medication. Watson is patent and draining to gravity watermelon colored urine, no clots seen. VSS. Placed on CPOx for SUAD protocol; SCD's on for DVT Prophylaxis and confirmed we are not restarting the Heparin gtt and Lovenox will be started tonight.
[2016-12-19] MEDS ORDERED: Lidocaine 2% 5 mL Topical Jelly TOPICAL PRN (14:45)
--- NOTE | 2016-12-19 16:40 | PCM.DIMED ---
Discharge Instructions Date of Service December 19, 2016 Dates of Hospitalization December 18, 2016 at 01:12 Discharge Diagnosis Discharge Diagnosis # Acute on chronic hematuria with associated clot retention delayed status post transurethral resection of bladder tumor in while on aggressive anticoagulant therapy. Present on admission. # History of urothelial carcinoma # Bilateral pulmonary emboli, chronic # Possible renal neoplasm requiring further workup as outpatient. # Obstructive sleep apnea, chronic # Acute blood loss anemia, present on admission. stable Diet Discharge Diet: No restrictions Activity Discharge Activity: Other (bed rest x 3 days) Call your provider Call your provider for: Fever or Chills, Shortness of breath, Bleeding, Chest pain, Excessive diarrhea Patient Instructions Patient Instructions Seek immediate medical attention if any new or worsening signs or symptoms occur. Follow-up plan 1. Followup with primary care provider in 7-10 days 2. Followup with urology (Dr. Brown) as instructed. Call urology office tomorrow for further appointment and instructions for followup [facility] [address] [place] [id number] 3. Followup with oncology (Dr. Woods) in 2-4 days Follow-up Provider: Luis Brown MD Provider: Carrillo Woods MD Mid-level Provider (F9): Suleiman Noble MD, Masoud December 19, 2016 16:40
[2016-12-19] MEDS ORDERED: OXYC5TAB72 PO (16:50)
[2016-12-19] MEDS ORDERED: Ondansetron 2 mg/mL 2 mL Inj ONE (17:44)
[2016-12-19] MEDS ORDERED: Dexamethasone 4 mg/mL Inj ONE (17:44)
[2016-12-19] MEDS ORDERED: Propofol 10,000 mCg/mL 20 mL Inj ONE (17:44)
--- NOTE | 2016-12-19 18:04 | NUR ---
Discharge Pt very eager to DC home this evening as he has not slept in 4 days and "cannot sleep here". Dr. Hunt wrote orders for DC and Dr. Brown phoned to confirm he was comfortable with the pt going home. Pt was able to demonstrate switching from his large night bag to his leg bag and had discussion on catheter care and cleaning. Pain well controlled with Roxicodone and son able to fill prescription before his pharmacy closed tonight. Pt has Lovenox prescription already and has been giving himself injections for quite some time. Reinforced the need for him to take it easy at home and go to bed. Pt understands additional respiratory risks d/t his sleep apnea and states he will wear his CPAP tonight. VSS. SpO2 99% on RA.
--- NOTE | 2016-12-19 19:28 | PCM.DC.MED ---
Discharge Summary Date of Service December 19, 2016 Dates of Hospitalization Date of Hospital Admission December 18, 2016 at 01:12 Date of Discharge: December 19, 2016 Providers: Admitting Physician: Rah Robin MD Primary Care Physician: Suleiman Noble MD Attending Physician: Rah Robin MD Diagnosis at Time of Discharge Diagnosis at Time of Discharge # Acute on chronic hematuria with associated clot retention delayed status post transurethral resection of bladder tumor in while on aggressive anticoagulant therapy. Present on admission. # History of urothelial carcinoma # Bilateral pulmonary emboli, chronic # Possible renal neoplasm requiring further workup as outpatient. # Obstructive sleep apnea, chronic # Acute blood loss anemia, present on admission. stable Procedures XRay, CTs & MRIs CT ABDOMEN RENAL PROTOCOL IMPRESSION: 1. A 2.1 x 2.0 cm lobulated, hypoenhancing mass in the inferior pole of the left kidney, highly suspicious for renal cell carcinoma. 2. A 7 mm exophytic nodule in the superior pole of the right kidney demonstrates mild enhancement. Because of small size, this nodule could be a small complex cyst or solid mass. 3. No evidence for jamila or distant metastasis. 4. Scattered colonic diverticula. No evidence for acute diverticulitis. 5. Small hiatal hernia. Dictated by: Vijay Chan M.D. on 11/17/2016 at 8:18 Approved by: Vijay Chan M.D. on 11/17/2016 at 8:33 Invasive Procedures cystoscopy and fulguration of resection bed on 12/19/[address] Brown Brief History As noted in H&P by dr. Mares: 56-year-old man with past history remarkable for low-grade urothelial carcinoma of the bladder, left renal neoplasm of unknown behavior, bilateral pulmonary emboli likely secondary to hypercoagulable state presents with gross hematuria for more than one week. The patient had a procedure by urologist Dr. Brown on November 28 for his urothelial carcinoma and since that time the patient has had gross hematuria and states that he may have only had 4 normal appearing urinations. Approximately one week ago the patient began to notice difficulty with urination attributed to significant blood clot burden. The patient denies pain other than at his penis when passing blood clots. Dr. Brown saw the patient December 17 and recommended that he come in to be evaluated at [facility]. The patient has been on Lovenox and warfarin since being diagnosed with bilateral pulmonary emboli in June 2016. The patient was converted to Lovenox prior to the urologic procedure on November 28. The patient was recently being bridged back to warfarin however his oncologist believes with the upcoming procedures for his bladder cancer and left renal neoplasm he should remain on Lovenox only. Hospital Course # Acute hematuria - history of recent cystoscopy procedure November 28 and diagnosis of low grade urothelial carcinoma - patient also has imaging showing a [id number] left renal mass possibly consistent with renal cell carcinoma - Urology Dr. Brown consulted from ED and subsequently patient underwent cystoscopy and fulguration on 12/19/16 - Post procedure patient insisted on being discharged home - Discussed with Dr. Brown who has cleared patient for discharge home and resumption of his anticoagulation as soon as tonight. - I tried to convince patient to stay overnight to make sure h/h remain stable after restarting Lovenox but he refused. # low grade urothelial carcinoma, stable - being followed by oncology Dr. Woods # bilateral pulmonary emboli, chronic - likely due to hypercoagulable state given multiple neoplasm - patient has been on anticoagulation since being diagnosed in June approximately 6 months ago - Patient likely to remain on anticoagulation intermediate until resolution of oncologic processes - Defer further follow up by oncology Dr. Woods as outpatient # Possible renal neoplasm - patient to have an MRI further evaluation on MondayDecember 21 - Urology Dr. Brown following - being followed by oncology Dr. Woods # Obstructive sleep apnea, chronic. Stable # Acute blood loss anemia due to hematuria. - H/H stable Exam Vital Signs (Last) Date Time Temp Pulse Resp B/P Pulse Ox O2 Delivery O2 Flow Rate FiO2 12/19/16 14:30 CPAP/BIPAP 12/19/16 13:30 36.3 61 18 129/72 98 12/19/16 12:35 2 Exam Lungs CTA bilaterally. CV: RRR. Watson cath in place at time of discharge Test 12/17/16 23:45 12/19/16 07:00 Iron Level 40ug/dL (35-150) Total Iron Binding Capacity 334ug/dL (250-450) Percent Iron Saturation 12%sat (15-50) Unsaturated Iron Binding 294ug/dL Ferritin 67ng/mL (30-400) Hold Bolton Top Tube Received (Received) White Blood Count 5.9th/mm3 (3.8-10.1) Red Blood Count 3.59mil/mm3 (4.40-5.80) Hemoglobin 10.2g/dL (13.8-17.2) Hematocrit 31.2% (41.0-50.0) Mean Corpuscular Volume 86.9fL (81-100) Mean Corpuscular Hemoglobin 28.4pg (27.0-35.0) Mean Corpuscular Hemoglobin Concent 32.7% (32.0-37.0) Red Cell Distribution Width 13.6% (12.3-15.4) Platelet Count 200bil/L (150-400) Neutrophils (%) (Auto) 55.5% (40-74) Lymphocytes (%) (Auto) 30.8% (14-46) Monocytes (%) (Auto) 11.2% (4-12) Eosinophils (%) (Auto) 1.9% (0-5) Basophils (%) (Auto) 0.3% (0-3) Prothrombin Time 10.0sec (8.1-12.5) Prothromb Time International Ratio 0.94ratio Activated Partial Thromboplast Time 59.2sec (22.8-33.0) Sodium Level 139mEq/L (134-144) Potassium Level 4.1mEq/L (3.5-5.2) Chloride Level 106mEq/L (97-108) Carbon Dioxide Level 20mmol/L (18-29) Blood Urea Nitrogen 8mg/dL (6-24) Creatinine 0.73mg/dL (0.76-1.27) Estimat Glomerular Filtration Rate 119mL/min (>59) Glucose Level 117mg/dL (60-99) Calcium Level 8.7mg/dL (8.5-10.1) Total Bilirubin 0.4mg/dL (0.0-1.2) Aspartate Amino Transf (AST/SGOT) 24U/L (0-50) Alanine Aminotransferase (ALT/SGPT) 59U/L (0-44) Alkaline Phosphatase 35U/L (25-150) Total Protein 5.2g/dL (6.4-8.4) Albumin 3.1g/dL (3.4-5.0) Procalcitonin 0.03ng/mL (0.00-0.08) Discharge Medications Discharge Medications Enoxaparin (Lovenox) 120 Mg/0.8 Ml Syringe 120 MG SUBQ BID (Reported) As needed oxyCODONE (oxyCODONE) 5 Mg Tablet 5-10 MG PO Q4H PRN PRN For Moderate Pain Prescribed by: OLIVIA LAGOS MD Followup Plan Disposition: home Follow-up plan 1. Followup with primary care provider in 7-10 days 2. Followup with urology (Dr. Brown) as instructed. Call urology office tomorrow for further appointment and instructions for followup [facility] [address] [place] [phone] 3. Followup with oncology (Dr. Woods) in 2-4 days Discharge Diet: No restrictions Discharge Activity: Other (bed rest x 3 days) Patient Instructions Seek immediate medical attention if any new or worsening signs or symptoms occur. Follow-up Provider: Luis Brown MD Provider: Carrillo Woods MD Mid-level Provider: Suleiman Noble MD Time spent 40 min copies to: Suleiman Noble MD; Carrillo Woods MD; Luis Brown MD, Masoud December 19, 2016 19:28
[2016-12-30] MEDS ORDERED: WARF5TAB7 PO (15:54)
[2016-12-30] MEDS ORDERED: PRE10 PO (15:54)
[2016-12-30] MEDS ORDERED: TAMS0.4C98 PO (15:54)
[2017-02-07] MEDS ORDERED: DABI150C PO (12:41)
--- NOTE | 2017-02-09 14:06 | OP ---
[address] [address] OPERATIVE REPORT PATIENT: LOGAN ESCALANTE : 1960 MR#: [id number] ADMIT: 12/18/2016 JOB ID: [id number] DATE OF SURGERY: 12/19/2016 SURGEON: Luis Brown M.D. PREOPERATIVE DIAGNOSIS(ES): Left renal neoplasm. POSTOPERATIVE DIAGNOSIS(ES): Left renal neoplasm. ANESTHESIA: General. SENIOR INSIGHT MANAGER INTERNATIONAL: RAQUEL Morales PROCEDURE PERFORMED: Left hand assist laparoscopic radical nephrectomy. PROCEDURE SUMMARY: The patient was positioned in modified left flank position and the abdomen and torso were prepped and draped in a sterile fashion following induction of general anesthesia. A 9 cm midline supraumbilical incision was made through the skin, layers of the subcutaneous abdominal wall to that of the rectus fascia. This was carefully incised the length of the incision and the pre-peritoneal fat was carefully dissected. The peritoneum was identified, carefully opened and then the incision was extended the full length of the wound incision. A flat hand port was then positioned appropriately and then additional 10 mm ports were placed at approximately the left mammary line lateral to the umbilicus and just beneath the costal margin. Pneumoperitoneum was created. Anatomic landmarks were identified. The white line of Toldt was then carefully incised along the left paracolic gutter and then around from the sigmoid flexure to the hepatic flexure. Gerota fascia was identified. Careful blunt, sharp and cautery dissection was performed without application of Hem-O-Loc clips where indicated for hemostasis circumferentially. Care was taken to spare the left adrenal gland. The pedicle was then encountered and a single artery and vein were carefully isolated. The ureter was then identified. This was isolated, clipped proximally and distally and divided sharply. The endovascular stapling device was then utilized and was brought across each of the vascular pedicles. Additional Hem-O-Loc clips were applied on the specimen on patient's side. The specimens were then divided sharply. Hemostasis was excellent. The specimen was removed through the hand port aperture. The colon and omentum were repositioned anatomically. The fascia of the hand ports were then closed using a single simple 0 Vicryl under direct visualization. The skin of the ports were reapproximated with subcuticular 4-0 Monocryl. The midline incision was closed with running 0 PDS on each apex and tying one another at approximately the midportion in a burying fashion. The subcutaneous layer was reapproximated with a running 2-0 Vicryl. Finally the skin was reapproximated using a 4-0 running Monocryl. The skin surfaces, the port incisions and midline hand port incision were then cleaned and dried. Small strips of Telfa were applied and Op-Site dressings were then applied over the Telfa. The patient was then repositioned in supine, awakened, transferred to the [facility] and transported to recovery in stable condition.
--- NOTE | 2017-02-14 13:59 | OP ---
[address] [address] OPERATIVE REPORT PATIENT: LOGAN ESCALANTE : 1960 MR#: [id number] ADMIT: 12/18/2016 JOB ID: [id number] DATE OF SURGERY: 12/19/2016 SURGEON: Luis Brown MD. PREOPERATIVE DIAGNOSIS(ES): 1. Gross hematuria. 2. Clot retention. POSTOPERATIVE DIAGNOSIS(ES): 1. Gross hematuria. 2. Clot retention. OPERATION PERFORMED: Cystoscopy, clot evacuation, and fulguration. ANESTHESIA: General. FINDINGS: Urethra normal. External sphincter intact. Prostate 4-4.5 cm length with moderate lateral lobe obstruction. Bladder 1+ trabeculation. There was approximately 200 cc to 250 cc of retained clot, some of which was well-organized and difficult to evacuate. The TUR bed of the right bladder neck was cauterized but no active bleeding was discovered. PROCEDURE SUMMARY: Patient was positioned supine. Was administered general anesthesia. He was then repositioned in semi-lithotomy and lower abdomen, genitalia, and groin were prepped and draped in sterile fashion. The 25-Slovak resectoscope was then advanced to the lower urinary tract with the findings as described above. Next, the scope was fitted with loop element and physical disruption of organized clot was painstakingly undertaken. With repeated disruptions of organized clot, manual irrigation with the Ellik and also use of graspers, all clot material was evacuated. The loop was then used to cauterize the base and edges of the resection bed. No active bleeding was discovered. A 20-Slovak Watson catheter was inserted in the bladder once instrumentation was removed. The balloon was inflated to 10 cc and placed to gravity drainage. The patient was then repositioned supine, awakened, transferred to [facility], and transferred to recovery in stable condition.
== END 2016-12-19 17:45 | disposition home or self-care (01) ==
LOC: SED 21:17 → OBSVTOIN 12-18 01:12 → MPC 12-18 01:12 → INTOOBSV 12-18 01:12 → OSC 12-19 10:38
PROVIDERS: ADMIT Hospitalist; ATTEND Hospitalist
DX: N99.820 Postprocedural hemorrhage of a genitourinary system organ or structure following a genitourinary system procedure (principal); R31.9 Hematuria, unspecified; C67.9 Malignant neoplasm of bladder, unspecified; D41.02 Neoplasm of uncertain behavior of left kidney; I27.82 Chronic pulmonary embolism; G47.33 Obstructive sleep apnea (adult) (pediatric); Z79.01 Long term (current) use of anticoagulants; Z98.890 Other specified postprocedural states; D68.59 Other primary thrombophilia; Z86.718 Personal history of other venous thrombosis and embolism; D62 Acute posthemorrhagic anemia
CPT/HCPCS: 36415; 51702; 52224; 80053; 82728; 83540; 83550; 84145; 85014; 85018; 85025; 85610; 85730; 86850; 99285; J0690; J1100; J1170; J1644; J1885; J2175; J2250; J2270; J2405; J3010; J7030; J7040; J7050; J7120; S0017

== ENCOUNTER 2017-01-02 10:05 | Inpatient (IN) | payer OTHER ==
[2017-01-02] VITALS (11 sets, daily range): BP systolic 109–135; BP diastolic 57–78; PULSE 52–93; RESP 10–18; O2SAT 95–98
[~2017-01-02] VITALS: Ht 182.9 cm; Wt 112.5 kg
[~2017-01-02 10:05] MED LIST changes: +Acetaminophen IV 1,000 MG in IV Premix 1 EACH IV ONE; +CeFAZolin Inj 2 GM in IV Premix 1 EACH IV ONE; +Lactated Ringer's 1,000 ML IV ONE; +TAMS0.4C98 PO
--- NOTE | 2017-01-02 12:06 | PCM.HPANE ---
Patient Data Date of Service: Jan 02, 2017 Surgeon Admitting Provider: Attending Provider:Luis Brown MD Primary Care Physician:Suleiman Noble MD Other Provider:Ector Hanna Anesthesia Reason for Visit Left Renal Mass Ht/WT & BMI Height (Feet): 6 Height (Inches): 0 Weight (Kilograms): 110.4 Body Mass Index 32.00 Allergies Coded Allergies: No Known Allergies (Unverified , 12/30/16) Past Anesthesia History Anesthesia History: Denies:: Abnormal Airway, Anesthesia Reactions, Difficult Intubation, Fam Anesthesia Reaction, Fam Malignant Hypertherm, Malignant Hyperthermia Diabetes History Hx Diabetes?: No MRSA MRSA: Yes (hx of more than 5 years ago-, thinks possible now) Medications Blood Thinner: Coumadin, Lovenox Last Dose Blood Thinner: Jan 01, 2017 Home Meds Incl Beta Liam: No Reported Medications Prednisone (PredniSONE)10 Mg [id number] Mg PO PRN Ref 0 12/30/16 Warfarin Sodium 5 Mg Tablet5-15 Mg PO DAILY PRN DIRECTED 30 Days Ref 0 12/30/16 Enoxaparin (Lovenox)120 Mg/0.8 Ml [id number] Mg SUBQ BID Ref 0 11/24/16 Discontinued Reported Medications Tamsulosin (Flomax)0.4 Mg Capsule0.4 Mg PO DAILY Ref 0 12/30/16 Discontinued Scripts oxyCODONE 5 Mg Tablet5-10 Mg PO Q4H PRN For Moderate Pain #20 TABLET Prov:Maxim Hunt 12/19/16 History History of ENT Problems?: No HEENT History: Denies:: Abnormal Airway Difficult Intubation Dysphagia Hearing Problem Sinus Problem TMJ Denture Type: None Teeth Condition: Within Normal Limits Hx of Heart Problems?: Yes Cardiovascular History: Positive for:: Thrombophlebitis (recently 06/2016 ending in PE both lungs-SEEING DR. PALENCIA-HEMATOLOGY) Denies:: Chest Pain Congestive Heart Failure Heart Murmur Hypertension Pacemaker Rheumatic Fever Valvular Heart Disease Other Cardiac History: HX ANEMIA Hx of Respiratory Problem?: Yes Respiratory History: Positive for:: Dyspnea Pulmonary Embolism Use of C-PAP Machine (SUAD+) Denies:: Asthma COPD Emphysema Hemoptysis Oxygen Administration Tuberculosis Other History/Comment h/o DVT, b/l PE Hx Neurologic Problems?: Yes Neurological History: Denies:: Alzheimer's Disease CVA Dementia Dizziness Headaches Multiple Sclerosis Parkinson's Disease Seizures Hx of GI Problems?: Yes Other GI Pertinent History: S/P LAP BAND Hx of Problems?: Yes Genitourinary History: Positive for:: Urinary Tract Infection ([place] W/ CIPRO) Denies:: HX of Hemodialysis Kidney Stones HX of Peritoneal Dialysis: No Other Pertinent History: C/OF HEMATURIA,BLADDER CA INTERMITTANT STEWART LT RENAL MASS=CURRENT PROBLEM S/P CYSTO Male Hx: Positive for:: Prostate Problems (BPH) Denies:: Scrotal Mass Testicular Surgery Skin History: Positive for:: History Skin Disorders? (S/P EXC NON-MELANOMA SKIN CA) Denies:: Pressure Ulcers Hx Musculoskeletal Problems?: Yes Musculoskeletal History: Positive for:: Back Injury (back surgery L5 25 years ago) Joint Replacement (total knee replacement right knee) Musculoskeletal Trauma (S/P SHOULDER RPR,ANKLE RPR) Hx of Psycho/Social Problems?: No Psycho Social History: Denies:: Anxiety Bipolar Disorder Hx Depression Suicide Attempt Hx Surgeries?: Yes (lap band, shoulder, ankle, back surgery, knee surgery,CYSTO ) Hx Any Other Health Problems?: Yes Other History: Positive for:: Cancer (kidney and bladder,SKIN CA) Hospitalization (surgeries PE) Denies:: Endocrine Disease Thyroid Disease History Blood Transfusions: Denies:: Blood Transfuse Reaction Blood Transfusions Hx Diabetes: No Hx Alcohol Use: YesHx Substance Use: No Smoking Status: Never Smoker Have You Smoked inLast 12 mo: No Stop/Bang Treated for Sleep Apnea?: Yes Do You Have a CPAP Machine?: Yes S-Snoring: Do You Snore Loudly: No T-Tired: feel tired, fatigued: Yes O-Obsered: Observed not breath: No P-Blood Pressure: treated: No B- Body Mass Index > 35 kg/m2: No A- Age over 50: Yes N- Neck Large Circumference: Yes G- Gender Male: Yes SUAD Total Score: 4 SUAD Risk Assessment: High Risk, =/>3 Yes SUAD Category 1: Yes Risk Assessment Category Category 1A: Patient has history of documented sleep apnea, and HAS NOT received any narcotic, sedative or anesthesia administration during this stay. Category 1B: Patient has history of documented sleep apnea, and HAS received any narcotic , sedative or anesthesia administration during this stay Category 2: Patient has SUSPECTED Obstructive Sleep Apnea, and HAS received any narcotic , sedative or anesthesia administration during this stay. Category 3: Patient has SUSPECTED Obstructive Sleep Apnea and HAS NOT received narcotic, sedative or anesthesia administration during this stay. Category 4: Outpatient in Procedural Areas with known sleep apnea or who screen positive for High Risk via the STOP/BANG questionnaire. Exam Exam Vital Signs Vital Signs Date Time Temp Pulse Resp B/P Pulse Ox O2 Delivery O2 Flow Rate FiO2 01/02/17 10:37 CPAP/BIPAP 01/02/17 10:34 36.3 72 18 122/78 98 Room Air General Appearance: Alert, Oriented X3, Cooperative, No Acute Distress HEENT/AIRWAY: MP 2 Lungs: Clear to Auscultation, Normal Air Movement Heart: Exam Unremarkable, Regular Rate/Rhythm, No Murmurs/Rubs/Gallops Meds/Labs/Diagnostics Admission Meds Current Medications Lactated Ringer's (Lr) 1,000 ml @ 120 mls/hr Q8H20M ONCE IV Last administered on 01/02/17 10:17; Start 01/02/17 at 05:00; Stop 01/02/17 at 13:19 Acetaminophen (Tylenol IV) 1,000 mg STK-MED ONCE IV Last administered on 11:40; Start 01/02/17 at 10:27; Stop 01/02/17 at 10:31; Status DC Plan Impression Patient chart reviewed, patient interviewed and anesthestic plan with risks, benefits, and alternatives discussed, and informed consent obtained. NPO per Anesth. Guidelines: Yes ASA Physical Status: ASA3 Severe Disease Anesthetic Support Modalities: [place] Scope Anesthetic Plan: GA Bene/Risks/Altern/Consents: Yes HP Complete Prior to Induction: Yes Ross Pretty MD Jan 02, 2017 12:06
[2017-01-02] MEDS ORDERED: Labetalol 5 mg/mL 4 mL Inj IV PRN (13:00)
[2017-01-02] MEDS ORDERED: hydrALAZINE 20 mg/mL Inj IVPUSH PRN (13:00)
[2017-01-02] MEDS ORDERED: HYDROmorphone 1 mg/mL Inj IVPUSH PRN (13:00)
[2017-01-02] MEDS ORDERED: Ondansetron 2 mg/mL 2 mL Inj IVPUSH PRN (13:00)
[2017-01-02] MEDS ORDERED: MetoCLOpramide 5 mg/mL 2 mL Inj IVPUSH PRN (13:00)
[2017-01-02] MEDS ORDERED: Atropine 0.4 mg/mL Inj IVPUSH PRN (13:00)
[2017-01-02] MEDS ORDERED: Lactated Ringer's 500 ML IV PRN (13:00)
[2017-01-02] MEDS ORDERED: Phenylephrine 10,000 mCg/mL Inj IVPUSH PRN (13:00)
[2017-01-02] MEDS ORDERED: Lactated Ringer's 1,000 ML IV SCH (13:00)
[2017-01-02] MEDS ORDERED: EPHEDrine Sulfate 50 mg/mL Inj IVPUSH PRN (13:00)
[2017-01-02] MEDS ORDERED: fentaNYL-PF 50 mCg/mL 2 mL Inj IVPUSH PRN (13:00)
[2017-01-02] MEDS: Bupivacaine Liposome 1.3% 20 mL Inj INFILTRATE SCH ×2 (13:30→18:27)
[2017-01-02] MEDS ORDERED: Lactated Ringer's 1,000 ML IV ONE ×2 (14:25→17:00)
--- NOTE | 2017-01-02 16:19 | PCM.ANEP1 ---
Post Anesthesia PACU Phase 1 Assessment Date of Service: Jan 02, 2017 Vital Signs 36.3 117/54 71 13 93% RA Anesthetic Administered: GA Level of Alertness: Sleepy, easy to arouse LARRY's with Equal Strength: Yes Pain: Yes Pain Scale Score: 5 Nausea or Vomiting: No CV Function & Hydration Stable: No Airway Device: Oxygen Delivery: Room Air Lungs: Clear to Auscultation, Normal Air Movement PACU Phase 2 Assessment Complications: No Follow up Care: No Patient Instructions Provided: Yes Ross Pretty MD Jan 02, 2017 16:19
[2017-01-02] MEDS ORDERED: Neostigmine 1 mg/mL 10 mL Inj ONE (17:29)
[2017-01-02] MEDS ORDERED: Glycopyrrolate 0.2 MG/ML 1mL Inj ONE (17:29)
[2017-01-02] MEDS ORDERED: Lidocaine PF 1% 30 mL Inj ONE (17:29)
[2017-01-02] MEDS ORDERED: Rocuronium 10 mg/mL 5 mL Inj ONE (17:29)
[2017-01-02] MEDS ORDERED: Phenylephrine/NS 100 mCg/mL 10 mL Syringe IVPUSH ONE (17:29)
[2017-01-02] MEDS ORDERED: fentaNYL-PF 50 mCg/mL 2 mL Inj ONE (17:29)
[2017-01-02] MEDS ORDERED: EPHEDrine/NS 5 mg/mL 5 mL Syringe ONE (17:29)
[2017-01-02] MEDS ORDERED: HYDROmorphone 2 mg/mL Inj ONE (17:29)
[2017-01-02] MEDS ORDERED: Ondansetron 2 mg/mL 2 mL Inj ONE (17:29)
[2017-01-02] MEDS ORDERED: Dexamethasone 4 mg/mL Inj ONE (17:29)
[2017-01-02] MEDS ORDERED: Propofol 10,000 mCg/mL 20 mL Inj ONE (17:29)
--- NOTE | 2017-01-02 19:39 | NUR ---
Arrival to 1002 Pt transferred from PACU at 1715, pt is awake and oriented but drowsy; restless from anesthesia but states "a little" when asked about pain refusing medication at this time. Watson patent draining to gravity, monitoring for UO less than 300cc per shift. 3 abdominal incisions are CDI with telfa and tegaderm. at bedside. CPAP to be set up by and RT for NOC shift. SCD's on. Error with medication orders entered CPOE by Dr. Brown were confirmed via phone conversation and pt will restart Lovenox 120mg in the AM.
[2017-01-02] MEDS: Lactated Ringer's 1,000 ML IV SCH (19:41)
[2017-01-02] MEDS: Acetaminophen IV 1,000 mg IV SCH (20:16)
[2017-01-02] MEDS: HYDROmorphone 0.5 mg/0.5 mL iSecure Syringe IVPUSH PRN ×2 (23:13→23:47)
[2017-01-02] MEDS: Ondansetron 2 mg/mL 2 mL Inj IVPUSH PRN (23:17)
[2017-01-03] VITALS (7 sets, daily range): BP systolic 119–145; BP diastolic 67–76; PULSE 66–82; RESP 17–20; O2SAT 94–99
--- NOTE | 2017-01-03 01:26 | NUR ---
Pain On initial assessment, patient states pain at 8/10 on pain scale. Oxycodone and acetaminophen administered. On reassessment, patient crying in pain along with apparent pain tremors. Dr. Brown paged. Dilaudid 0.25-0.5mg IVP ordered and .25mg IVP administered along with 4mg of Zofran IVP. Patient states pain 7/10. Tremors subsided. Abdomen soft/tender. Midline dressing CDI. Call light within reach. Care continues.
[2017-01-03] MEDS: HYDROmorphone 0.5 mg/0.5 mL iSecure Syringe IVPUSH PRN ×2 (02:51→06:04)
[2017-01-03] MEDS: Ondansetron 2 mg/mL 2 mL Inj IVPUSH PRN ×2 (03:01→08:15)
[2017-01-03] MEDS: Acetaminophen IV 1,000 mg IV SCH ×3 (04:13→16:00)
[2017-01-03] MEDS: Lactated Ringer's 1,000 ML IV SCH ×3 (04:13→21:19)
--- NOTE | 2017-01-03 06:13 | NUR ---
Pain Patients pain has been 9/10-10/10 throughout shift. Dilaudid IVP, oxycodone , and IV tylenol have all been administered. Patient continues to have eructation several times an hour. Zofran 8mg IVP administered. Care continues
--- NOTE | 2017-01-03 08:31 | OP ---
[address] [address] OPERATIVE REPORT PATIENT: LOGAN ESCALANTE : 1960 MR#: [id number] ADMIT: 01/02/2017 JOB ID: [id number] DATE OF SURGERY: 01/02/2017 SURGEON: Luis Brown MD PREOPERATIVE DIAGNOSIS(ES): Left renal mass. POSTOPERATIVE DIAGNOSIS(ES): Left renal mass. OPERATION PERFORMED: Left radical nephrectomy. ANESTHESIOLOGIST: Ross Pretty MD ANESTHESIA: General and 1.33% Exparel. GENERAL MANAGER FARM: RAQUEL Morales PROCEDURE PERFORMED: Left hand assisted laparoscopic radical nephrectomy. FINDINGS: Tubing from a lap band was seen and unencumbered within the peritoneum perineal cavity. There was a large amount of intraperitoneal fat. The left adrenal gland was intentionally preserved. PROCEDURE SUMMARY: The patient was positioned supine, administered general anesthetic, he was then repositioned in modified left flank position. The abdomen and torso was then prepped and draped in sterile fashion. A 9 cm supraumbilical incision was then made using sharp blunt cautery dissection through the layers of the midline abdominal wall and the peritoneal cavity was then entered. A port was then carefully placed avoiding entrapment of bowel. Under direct visualization, 10 mm port incisions were then created approximately in the left mammary line, one midway between the costal margin and the umbilicus and one just inferior to the umbilicus. Camera was position and the white line of Toldt was then carefully taken down along the left pericolic gutter and superiorly along the inferior margin of the spleen. The colon was then reflected medially. The search was then taken to identify the ureter and vessels. The single artery and vein were then isolated, divided using a vascular stapler and additionally large plastic blocking heme-lock clips. Hemostasis was excellent. The ureter was then divided with a medium clipped proximally and distally and divided sharply. Superiorly, meticulous blunt and cautery dissection was utilized with application and plastic clips were indicated for hemostasis in the vicinity of the superior pole to intentionally leave the left adrenal gland. The specimen was then brought out through the hand port hole intact and submitted to Pathology for routine gross and microscopic examination. The operative bed was then irrigated and dried. Hemostasis was excellent. The colon was repositioned anatomically. The port site fascia was then closed with single interrupted 0-Vicryl and the skin was reapproximated with a running subcuticular 4-0 Monocryl. The midline incision was closed with 0 PDS. The subcutaneous layer was reapproximated with 3-0 Vicryl and the skin was reapproximated using a running subcuticular 4-0 Monocryl. Small Telfa and OpSite were then applied to the incision site. The patient was repositioned supine, the incisions were then infiltrated with 1.33% Exparel. The patient was then awakened, transferred to [facility], and transferred to recovery in stable condition.
--- NOTE | 2017-01-03 08:31 | PROG NOTE ---
[address] [address] PROGRESS NOTE PATIENT: LOGAN ESCALANTE : 1960 MR#: [id number] ADMIT: 01/02/2017 JOB ID: [id number] DATE: 01/03/2017 INTERVAL PROGRESS NOTE: Postoperative day #1 status post left hand assisted laparoscopic radical nephrectomy. SUBJECTIVE: Pain control associated nausea was the primary event of the night. He did not get an epidural due to Lovenox use. OBJECTIVE: Afebrile. Vital signs are stable. Eight hour urine output 350 cc. Examination: He is obviously uncomfortable and in at least mild distress currently. Head and neck examination is unremarkable. Chest: Equal, clear and unlabored bilaterally. Abdomen is obese, soft, protuberant. Dressings are intact. No localizing signs. Extremities: SCDs are in place. No edema, cyanosis or clubbing. IMPRESSION: Stable postop day #1. Pain control is a primary concern. PLAN: 1. Consult anesthesia. Discussed BUGGY OPERATOR versus epidural. 2. Hold Lovenox until decision is made. 3. Increase diet, neck activity as usual. 4. Pathology pending.
--- NOTE | 2017-01-03 10:01 | NUR ---
Social Work- Screening/ Readiness for Discharge Data: EMR reviewed. Pt is a 56 year old male admitted 01/02/17 for left renal mass. Pt is POD 1. Pt's insurance is [facility]. Pt's PCP is Suleiman Noble MD. SW met with pt and at bedside regarding discharge plan, SW role explained. Pt was alert and oriented x3 but was in pain so requested the LINUX SYSTEM ENGINEER speak with his only. Pt's and DPOA is Linda Guzmanrowdy, . DPOA is scanned in EMR and hard copy is on chart. Pt resides in [place] with is where he remains independent at baseline. Pt to discharge home with to transport via POV. SW provided phone number and plan on whiteboard. No discharge needs identified at this time. SW will continue to follow. Assessment: Pt who is independent at baseline. Plan: Pt to discharge home with to transport via POV. No discharge needs identified at this time. SW will continue to follow. GRACIE Colbert
--- NOTE | 2017-01-03 10:26 | NUR ---
Pain/Nausea Patient complains of a 9/10 for pain this AM. Administered IV Zofran with no relief after one hour. Patient refused IV dilaudid for his pain due to nausea and patient states "it doesn't help". Also refused PO reglan due to nausea and not being able to tolerate PO intake. IV Tylenol administered. Pain increases with patient's frequent belching which is a result from lap band. Surgeon consulted about pain relief and surgeon consulted with anesthesia to come see the patient. Anesthesia onboard and ETA is 11AM. Continuing to monitor patient's pain. Addendum: 01/03/17 at 1253 by CELENA HELLER RN Epidural placed in room at 1145 by anesthesiologist. Patient tolerated sitting on the side of the bed well in regards to pain. 4L O2 via NC placed on patient during procedure. Reports no pain at this time and states that he feels numb on his abdomen but can feel his feet.. Patient alert, lying in bed with lights on, playing games on his phone. VSS last BP at 1247 was 111/68 HR 66 and SPO2 99% on 3L O2. Patient able to tolerate eating crackers with sips of water. Continuing to monitor pain level and VS. CPO2 in place. Weaning patient down on O2 based on oxygen requirements.
[2017-01-03] MEDS ORDERED: Lactated Ringer's 1,000 ML IV ONE (11:02)
[2017-01-03] MEDS ORDERED: Ondansetron 2 mg/mL 2 mL Inj IVPUSH PRN (11:05)
[2017-01-03] MEDS ORDERED: Atropine 1 mg/mL Inj IVPUSH PRN (11:05)
[2017-01-03] MEDS ORDERED: fentaNYL-PF 50 mCg/mL 2 mL Inj IVPUSH PRN (11:05)
[2017-01-03] MEDS ORDERED: EPHEDrine Sulfate 50 mg/mL Inj IV PRN (11:05)
--- NOTE | 2017-01-03 11:05 | PCM.HPANE ---
Patient Data Surgeon Admitting Provider:Luis Brown MD Attending Provider:Luis Brown MD Primary Care Physician:Suleiman Noble MD Other Provider:Ector Hanna Anesthesia Reason for Visit Left Renal Mass LEFT RENAL MASS Ht/WT & BMI Height (Feet): 6 Height (Inches): 0 Weight (Kilograms): 111.000 Body Mass Index 32.00 Allergies Coded Allergies: No Known Allergies (Unverified , 12/30/16) Past Anesthesia History Anesthesia History: Denies:: Abnormal Airway, Anesthesia Reactions, Difficult Intubation, Fam Anesthesia Reaction, Fam Malignant Hypertherm, Malignant Hyperthermia Diabetes History Hx Diabetes?: No MRSA MRSA: Yes (hx of more than 5 years ago-, thinks possible now) Medications Blood Thinner: Coumadin, Lovenox Last Dose Blood Thinner: Jan 01, 2017 Home Meds Incl Beta Liam: No Reported Medications Prednisone (PredniSONE)10 Mg [id number] Mg PO PRN Ref 0 12/30/16 Warfarin Sodium 5 Mg Tablet5-15 Mg PO DAILY PRN DIRECTED 30 Days Ref 0 12/30/16 Enoxaparin (Lovenox)120 Mg/0.8 Ml [id number] Mg SUBQ BID Ref 0 11/24/16 Discontinued Reported Medications Tamsulosin (Flomax)0.4 Mg Capsule0.4 Mg PO DAILY Ref 0 12/30/16 Discontinued Scripts oxyCODONE 5 Mg Tablet5-10 Mg PO Q4H PRN For Moderate Pain #20 TABLET Prov:Maxim Hunt 12/19/16 History History of ENT Problems?: No HEENT History: Denies:: Abnormal Airway Difficult Intubation Dysphagia Hearing Problem Sinus Problem TMJ Denture Type: None Teeth Condition: Within Normal Limits Hx of Heart Problems?: Yes Cardiovascular History: Positive for:: Thrombophlebitis (recently 06/2016 ending in PE both lungs-SEEING DR. PALENCIA-HEMATOLOGY) Denies:: Chest Pain Congestive Heart Failure Heart Murmur Hypertension Pacemaker Rheumatic Fever Valvular Heart Disease Other Cardiac History: HX ANEMIA Hx of Respiratory Problem?: Yes Respiratory History: Positive for:: Dyspnea Pulmonary Embolism Use of C-PAP Machine (SUAD+) Denies:: Asthma COPD Emphysema Hemoptysis Oxygen Administration Tuberculosis Hx Neurologic Problems?: Yes Neurological History: Denies:: Alzheimer's Disease CVA Dementia Dizziness Headaches Multiple Sclerosis Parkinson's Disease Seizures Hx of GI Problems?: Yes Other GI Pertinent History: S/P LAP BAND Hx of Problems?: Yes Genitourinary History: Positive for:: Urinary Tract Infection (TX W/ CIPRO) Denies:: HX of Hemodialysis Kidney Stones HX of Peritoneal Dialysis: No Other Pertinent History: C/OF HEMATURIA,BLADDER CA INTERMITTANT STEWART LT RENAL MASS=CURRENT PROBLEM S/P CYSTO Male Hx: Positive for:: Prostate Problems (BPH) Denies:: Scrotal Mass Testicular Surgery Skin History: Positive for:: History Skin Disorders? (S/P EXC NON-MELANOMA SKIN CA) Denies:: Pressure Ulcers Hx Musculoskeletal Problems?: Yes Musculoskeletal History: Positive for:: Back Injury (back surgery L5 25 years ago) Joint Replacement (total knee replacement right knee) Musculoskeletal Trauma (S/P SHOULDER RPR,ANKLE RPR) Hx of Psycho/Social Problems?: No Psycho Social History: Denies:: Anxiety Bipolar Disorder Hx Depression Suicide Attempt Hx Surgeries?: Yes (lap band, shoulder, ankle, back surgery, knee surgery,CYSTO ) Hx Any Other Health Problems?: Yes Other History: Positive for:: Cancer (kidney and bladder,SKIN CA) Hospitalization (surgeries PE) Denies:: Endocrine Disease Thyroid Disease History Blood Transfusions: Denies:: Blood Transfuse Reaction Blood Transfusions Hx Diabetes: No Hx Alcohol Use: YesHx Substance Use: No Smoking Status: Never Smoker Have You Smoked inLast 12 mo: No Stop/Bang Treated for Sleep Apnea?: Yes Do You Have a CPAP Machine?: Yes S-Snoring: Do You Snore Loudly: No T-Tired: feel tired, fatigued: Yes O-Obsered: Observed not breath: No P-Blood Pressure: treated: No B- Body Mass Index > 35 kg/m2: No A- Age over 50: Yes N- Neck Large Circumference: Yes G- Gender Male: Yes SUAD Total Score: 4 SUAD Risk Assessment: High Risk, =/>3 Yes SUAD Category 1: Yes Risk Assessment Category Category 1A: Patient has history of documented sleep apnea, and HAS NOT received any narcotic, sedative or anesthesia administration during this stay. Category 1B: Patient has history of documented sleep apnea, and HAS received any narcotic , sedative or anesthesia administration during this stay Category 2: Patient has SUSPECTED Obstructive Sleep Apnea, and HAS received any narcotic , sedative or anesthesia administration during this stay. Category 3: Patient has SUSPECTED Obstructive Sleep Apnea and HAS NOT received narcotic, sedative or anesthesia administration during this stay. Category 4: Outpatient in Procedural Areas with known sleep apnea or who screen positive for High Risk via the STOP/BANG questionnaire. High Risk, =/>3 Yes Exam Exam Vital Signs Vital Signs Date Time Temp Pulse Resp B/P Pulse Ox O2 Delivery O2 Flow Rate FiO2 01/03/17 08:18 CPAP/BIPAP 01/03/17 04:55 36.5 71 20 133/68 94 Nasal Cannula 2.00 General Appearance: Alert, Oriented X3, Cooperative, No Acute Distress HEENT/AIRWAY: MP 2 Lungs: Clear to Auscultation, Normal Air Movement Heart: Exam Unremarkable, Regular Rate/Rhythm, No Murmurs/Rubs/Gallops Meds/Labs/Diagnostics Admission Meds Current Medications Lactated Ringer's 1,000 ml @ ud STK-MED ONCE IV Last administered on 01/02/17 14:25; Start 01/02/17 at 14:25; Stop 01/02/17 at 15:27; Status DC Lactated Ringer's 1,000 ml @ ud STK-MED ONCE IV Last administered on 01/02/17 17:00; Start 01/02/17 at 17:00; Stop 01/02/17 at 18:13; Status DC Acetaminophen 1000 mg/Premix 100 ml @ 400 mls/hr Q6H IV Last administered on 04:13; Start 01/02/17 at 19:35; Stop 01/03/17 at 08:31; Status DC Lactated Ringer's 1,000 ml @ 125 mls/hr Q8H IV Last administered on 01/03/17 04:13; Start 01/02/17 at 19:35 Acetaminophen/ Premix (Tylenol IV/IV Premix) 100 ml @ 400 mls/hr Q6H IV Last administered on 01/03/17 10:16; Start 01/03/17 at 10:00; Stop 01/03/17 at 16:14 Plan Impression Patient chart reviewed, patient interviewed and anesthestic plan with risks, benefits, and alternatives discussed, and informed consent obtained. NPO per Anesth. Guidelines: Yes ASA Physical Status: ASA2 Mod Systemic Disease Anesthetic Plan: Epidural Bene/Risks/Altern/Consents: Yes HP Complete Prior to Induction: Yes Jakob An MD Jan 03, 2017 11:04
[2017-01-03] MEDS: fentaNYL 2 mCg/mL-Bupiv 0.125% 100 ML in IV Premix 1 EACH EPIDURAL SCH ×2 (12:01→20:35)
[2017-01-03] MEDS ORDERED: Ketamine 10 mg/mL 20 mL Inj ONE (15:50)
[2017-01-03] MEDS ORDERED: fentaNYL-PF 50 mCg/mL 2 mL Inj ONE (15:50)
[2017-01-03] MEDS: Sodium Chloride LOK Flush 10 mL Syringe IVFLUSH SCH (16:14)
--- NOTE | 2017-01-03 21:05 | PROCED ---
[address] [address] PROCEDURE NOTE PATIENT: LOGAN ESCALANTE : 1960 MR#: [id number] ADMIT: 01/02/2017 JOB ID: [id number] DATE OF SERVICE: 01/04/2017 OPERATIVE PROCEDURE: Thoracic epidural placement. POSTOPERATIVE DIAGNOSIS(ES): PREOPERATIVE DIAGNOSIS(ES): SURGEON: Jakob An MD I was called by Dr. Brown today asking for a consultation for epidural placement on a patient who had a nephrectomy yesterday but also had taken Lovenox. I had been advised that the patient had been off Lovenox for approximately 36 hours, and that he is not tolerating his narcotic pain relief management very well. The patient was consented for this procedure and questions were answered. The patient was given 100 mcg of fentanyl with 10 mg of ketamine and was in the sitting position and placed on monitor. The patient's back was sterilely prepped and draped, 3 cc of 1% lidocaine was used as a local anesthetic. A 17-gauge Tuohy needle was advanced in the T11-12 interspace with a crisp loss of resistance using air and saline. The cath advanced easily, a sterile dressing was applied. The patient was negative for a test dose and tolerated the procedure very well and reports significant pain relief. [facility]
[2017-01-04] VITALS (11 sets, daily range): BP systolic 121–148; BP diastolic 67–81; PULSE 79–90; RESP 16–18; O2SAT 90–99
[2017-01-04] MEDS: Sodium Chloride LOK Flush 10 mL Syringe IVFLUSH SCH ×3 (00:04→16:30)
--- NOTE | 2017-01-04 01:32 | NUR ---
Pain/activity Pt reporting excellent pain control with epidural and has only had to use the bolus dose a couple times so far this shift. Pt is on CPOx and 2L O2 via NC with O2 sats mid 90s. Pt reporting that home CPAP "not working." Midline incision and lap sites are CDI. Pt denies nausea. Watson patent and draining clear urine. Pt reports he is now passing gas.
[2017-01-04] MEDS: fentaNYL 2 mCg/mL-Bupiv 0.125% 100 ML in IV Premix 1 EACH EPIDURAL SCH ×3 (03:30→17:53)
[2017-01-04] MEDS: Lactated Ringer's 1,000 ML IV SCH ×2 (04:52→09:25)
[2017-01-04] MEDS: Acetaminophen IV 1,000 MG in IV Premix 1 EACH IV PRN ×2 (06:37→20:57)
--- NOTE | 2017-01-04 06:43 | NUR ---
Headache Pt complaint of headache this morning and requested Tylenol. IV Tylenol no longer on eMAR and Dr. Brown paged for new order. IV Tylenol administered.
--- NOTE | 2017-01-04 11:42 | PATH ---
SURGICAL PATHOLOGY Attending Physician:Luis Brown MD CASE STATUS: Signed Out PATIENT NAME: LOGAN ESCALANTE PID: [id number] : 1960 DATE COLLECTED:01/02/2017 00:00 SPECIMEN: Kidney, Radical Nephrectomy for Tumor CLINICAL HISTORY: LEFT RENAL MASS 1). LEFT KIDNEY FINAL DIAGNOSIS: 1.LEFT RADICAL NEPHRECTOMY SPECIMEN: RENAL CELL CARCINOMA WITH THE FOLLOWING FEATURES: 1. TUMOR SITE: LOWER POLE 2. TUMOR SIZE: 3.6 X 3.1 X 3.0 CM 3. HISTOLOGIC TYPE: CLEAR CELL CARCINOMA 4. HISTOLOGIC GRADE (COLIN): COLIN NUCLEAR GRADE 2 5. TUMOR NECROSIS: NOT IDENTIFIED 6. TUMOR FOCALITY: SINGLE FOCUS 7. EXTENT OF TUMOR: TUMOR APPEARS CONFINED TO THE KIDNEY 8. RESECTION MARGINS: WIDELY FREE OF TUMOR 9. LYMPH/VASCULAR INVASION: NOT IDENTIFIED 10. RENAL PELVIS INVOLVEMENT: NOT IDENTIFIED 11. ADRENAL GLAND: ABSENT 12. NON-NEOPLASTIC KIDNEY: APPEARS ESSENTIALLY UNREMARKABLE 13. PATHOLOGIC STAGE: pT1, pNX ICD10 C64.2 GROSS DESCRIPTION: The specimen is received in formalin, labeled with the patient's name, sublabeled as left kidney and consists of a kidney (12.2 x 6.0 x 4.7 cm) with attached ureter (length-4.5 cm, diameter-0.2 cm), renal artery (length-2.2 cm, diameter-0.1 cm), renal vein (length-1.5 cm, diameter-0.5 cm) and renal adipose tissue (up to 9.5 cm in depth). The parenchyma is olivares with normal architecture and contains an orange-red multilobular well circumscribed mass (3.6 x 3.1 x 3.0 cm) involving be inferior pole. The mass is 6.2 cm from the ureteric, 5.3 cm from the arterial, and 5.2 cm from the venous resection margins. The mass pushes outward on the capsule beyond the normal renal contour but does not extend through into the adipose tissue. The mass does not involve the ureter, vessels, pelvis or sinus. No other nodules, masses or lesions are identified. Section code: (A) ureteric, arterial and venous resection margins; (B-F) mass, contracts representative; (G) normal parenchyma. 01/03/17 JM MICRO DESCRIPTION: See diagnosis. ICD-9 CODES: CPT CODES: 1: 00332 Electronically Signed Out Gerald Cai MD Located Within [facility] Pathology [facility] [address], [place] [address] Technical component performed at [facility], [facility] [address], [place], [address]
--- NOTE | 2017-01-04 18:32 | NUR ---
Pain/Ambulation Pt has had well controlled pain most of today using epidural. Pt was also able to get oob a few times today, tolerated this decently, but had drastic increase in pain. Pt was able to ambulate to chair and sit there for about 10min, using pillow to brace stomach and returned to bed.
--- NOTE | 2017-01-04 19:58 | PROG NOTE ---
[address] [address] PROGRESS NOTE PATIENT: LOGAN ESCALANTE : 1960 MR#: [id number] ADMIT: 01/02/2017 JOB ID: [id number] DATE: 01/04/2017 The patient is a 56-year-old gentleman status post nephrectomy, postop day number two. At the time of his surgery, his Lovenox precluded him from an epidural. He had very poor pain control and a thoracic epidural was placed on postop day number one by Dr. An. The patient noted significantly improved pain control after his epidural. He is currently doing quite well and states minimal pain at rest. He does note some pain and discomfort when he gets up and walks around, but he does not have any weakness or lower extremity sensation changes. He is now passing gas and tolerating a diet. He complains of no complications or side effects from the epidural. OBJECTIVE: The patient's vital signs have been stable. His labs are unremarkable. He is afebrile. His back is nontender to palpation and the epidural site is clean, dry and intact. The patient has good dermatomal coverage of his incision. The epidural is currently running at 10 mL/h of 0.125% bupiv +2mcg/ml fentanyl. ASSESSMENT AND PLAN: The patient has a well-functioning thoracic epidural. He expects to be hospitalized for another 1-2 days. We will continue his current pain management at this time. It is possible that we will transition him to oral pain medications tomorrow as he is now able to take pain meds by mouth. Will defer to Dr. Brown as to the timing of this transition whether it be tomorrow or the next day. ASHLY
[2017-01-04] MEDS ORDERED: 0.9% Sodium Chloride 250 ML ONE (20:43)
[2017-01-05] VITALS: BP 121/75; PULSE 81; RESP 18; O2SAT 100
[2017-01-05] MEDS: Sodium Chloride LOK Flush 10 mL Syringe IVFLUSH SCH ×2 (00:30→08:47)
[2017-01-05] MEDS: fentaNYL 2 mCg/mL-Bupiv 0.125% 100 ML in IV Premix 1 EACH EPIDURAL SCH (01:54)
[2017-01-05] MEDS: Lactated Ringer's 1,000 ML IV SCH ×3 (01:55→11:35)
[2017-01-05 02:22] VITALS: RESP 18; O2SAT 100
--- NOTE | 2017-01-05 02:57 | NUR ---
FEVER/H/A: Early evening shift pt. had a low grade fever temp=37.9, was given IV Tylenol per pt's request. Also he reported a mild head ache, pt. mainly requested IV Tylenol for his head ache. Advised pt. to use his IS to help lungs health and control his low grade fever, encouraged ambulation when possible. Watson with clear yellow urine to be removed this am at 0500 as per MD orders. Bipap on at HS pt. with hx of sleep apnea. Cont. pulse ox. also on, RA. A & O, vss. pleasant and cooperative with care. On going care.
[2017-01-05 05:20] VITALS: BP 157/78; PULSE 75; RESP 18; O2SAT 93
[2017-01-05 05:41] LABS: Mean Corpuscular Hemoglobin 28.7 pg (27.0-35.0); Mean Corpuscular Volume 90.4 fL (81-100)
[2017-01-05] MEDS: Acetaminophen IV 1,000 MG in IV Premix 1 EACH IV PRN (05:50)
--- NOTE | 2017-01-05 06:43 | NUR ---
STEWART: Stewart catheter removed at 0500 am, total output 1800 ml of pale yellow urine. At about 0630 pt. voided 100 ml in the urinal. Gave another dose of IV Tylenol for low grade fever and head ache. A & O, vss.
[2017-01-05 07:50] VITALS: RESP 18; O2SAT 94
--- NOTE | 2017-01-05 09:02 | PROG NOTE ---
[address] [address] PROGRESS NOTE PATIENT: LOGAN ESCALANTE : 1960 MR#: [id number] ADMIT: 01/02/2017 JOB ID: [id number] DATE: 01/05/2017 SUBJECTIVE: The patient reports 0/10 pain. Denies pruritus and is able to ambulate well. The patient's epidural site was examined which was found to be clean, dry, and intact. The patient's epidural infusion is bupivacaine 0.125% with fentanyl 2 mcg/mL, infusing at 10 mL an hour with a 5 mL PCEA block out at 20 minutes. The patient is tolerating food very well and has been transitioned to oral pain medications this morning. Dr. Brown has suggested the patient may go home as early as tonight. For that reason, the patient's epidural was removed, tip intact, and full transitioned to oral pain meds will occur throughout the day hopefully allowing the patient to be discharged this evening. ASHLY
--- NOTE | 2017-01-05 13:34 | NUR ---
Social Work- Readiness for Discharge Data: EMR reviewed. Pt is on day 3 of hospitalization for left renal mass. Pt is POD 3. Pt is not medically ready for discharge anticipate tomorrow. Per Pharmacist in multi-disciplinary rounds, pt has orders to wean off epidural and transition to dilaudid. Pt to have his patel discontinued prior to discharge. Pt is independent at baseline at home with his spouse. SW does not anticipate any discharge needs. Pt to discharge home with to transport via POV. SW will continue to follow if needs arise. Assessment: Pt who is independent at baseline. Plan: Pt is independent at baseline at home with his spouse. SW does not anticipate any discharge needs. Pt to discharge home with to transport via POV. SW will continue to follow if needs arise. Jaida Yan MSW
--- NOTE | 2017-01-05 14:03 | NUR ---
Pain/Activity Epidural catheter was stopped and removed @ approx [address] An. Started patient on oral hydromorphone for pain mgmt. Tolerating well, able to keep pain at a tolerable level. Encouraged to be out of bed and ambulating today. So far has spent 1/2 the morning in chair and ambulated in hallway x2.
--- NOTE | 2017-01-05 14:06 | NUR ---
GI/ Denies any nausea/vomiting, Tolerating general diet. BT's present. Attempted to have BM but was unsuccessful. Received order for suppository. Administered adn within 1 hr, patient was able to have medium BM.
[2017-01-05 14:59] VITALS: BP 133/76; PULSE 72; RESP 18; O2SAT 95
--- NOTE | 2017-01-05 16:37 | NUR ---
DISCHARGE Reviewed discharge paperwork with patient. Including pain medication and stool softner. Patient aware of need to make follow up appointment with Dr. Brown in 4 weeks. Asked patient how he felt about doing lovenox injections, patient stated he felt very comfortable as he has been doing them for the last month at home. Had patient self administer injection, did very well. IV catheter removed intact. Removed outer dressings from incisions and instructed patient on care of instructions. verbalized understanding. Patient left will all personal belongings, wheeled out to roundabout in wheelchair and was picked up by and taken home.
[2017-01-06] MEDS ORDERED: Polyethylene Glycol (PEG) 17 Gm Powder PO SCH (08:30)
--- NOTE | 2017-01-07 11:07 | DIS ---
[address] [address] DISCHARGE SUMMARY PATIENT: LOGAN ESCALANTE : 1960 MR#: [id number] ADMIT: 01/02/2017 JOB ID: [id number] DIS: 01/05/2017 ADMITTING DIAGNOSIS: Left renal mass. DISCHARGE DIAGNOSIS: Left renal mass. PROCEDURES PERFORMED IN HOSPITAL: 1. Left hand-assisted laparoscopic radical nephrectomy. 2. Placement of epidural analgesia catheter. HOSPITAL SUMMARY: The patient was admitted on the morning of January 02, 2017, and underwent uncomplicated left hand-assisted radical nephrectomy under general anesthesia and use of 1.33% Exparel. His postoperative course was remarkable for onset of significant pain control 11 p.m. despite intravenous Dilaudid. Anesthesia consult was obtained and an epidural catheter was successfully placed with excellent subsequent pain relief. the patient's hospital course was unremarkable. He voided well following catheter removal on the second postoperative day, ambulating degree of assistance. On the morning of January 05, 2017, the epidural catheter was removed, and his pain symptoms well controlled on 4 mg of Dilaudid. On the afternoon of January 05 was stable for discharge. Pathology was still pending. He was provided prescription for Dilaudid 4 mg. Postop visit is requested at my office in about two weeks. restrictions, driving restrictions and hygiene instructions were provided at discharge.
== END 2017-01-05 15:51 | disposition home or self-care (01) | DRG 658 ==
LOC: SAS 10:05 → OSC 17:28
PROVIDERS: ADMIT Specialist; ATTEND Specialist
PROC: 0TT10ZZ Resection of Left Kidney, Open Approach (ICD-10-PCS; principal; 2017-01-02 12:30)
PROC: 00HU33Z Insertion of Infusion Device into Spinal Canal, Percutaneous Approach (ICD-10-PCS; 2017-01-04)
PROC: 3E0R3CZ (ICD-10-PCS; 2017-01-04)
DX: C64.2 Malignant neoplasm of left kidney, except renal pelvis (principal); G89.18 Other acute postprocedural pain; Z79.01 Long term (current) use of anticoagulants; Z86.711 Personal history of pulmonary embolism; Z86.72 Personal history of thrombophlebitis

== ENCOUNTER → 2017-04-11 | Day surgery (SDC) | payer OTHER ==
[~2017-04-11] VITALS: Ht 182.9 cm; Wt 106.0 kg
[~2017-04-11] MED LIST changes: +0.9% Sodium Chloride 1,000 ML IV SCH; -Acetaminophen IV 1,000 MG in IV Premix 1 EACH IV ONE; -CeFAZolin Inj 2 GM in IV Premix 1 EACH IV ONE; +FERR325T40 PO; -Lactated Ringer's 1,000 ML IV ONE; -PRE10 PO; +Propofol 10,000 mCg/mL 20 mL Inj ONE; +Sodium Chloride LOK Flush 10 mL Syringe IV PRN; -TAMS0.4C98 PO; +WARF10TA4 PO; -WARF5TAB7 PO; +fentaNYL-PF 50 mCg/mL 2 mL Inj IVPUSH PRN
[2017-04-11 07:45] VITALS: BP 128/88; PULSE 65; RESP 14; O2SAT 99
--- NOTE | 2017-04-11 08:55 | PCM.HPANE ---
Patient Data Surgeon Admitting Provider: Attending Provider:En Cartagena MD Primary Care Physician:Suleiman Noble MD Other Provider: Reason for Visit Iron Deficiency Anemia Ht/WT & BMI Height (Feet): 6 Weight (Kilograms): 106 Body Mass Index 31.00 Allergies Coded Allergies: hydromorphone (Verified Allergy, Severe, severe painful rash with red pus- filled bumps, 01/10/17) Past Anesthesia History Anesthesia History: Denies:: Abnormal Airway, Anesthesia Reactions, Difficult Intubation, Fam Anesthesia Reaction, Fam Malignant Hypertherm, Malignant Hyperthermia Diabetes History Hx Diabetes?: No MRSA MRSA: Yes (hx of more than 5 years ago-, thinks possible now) Medications Blood Thinner: Coumadin, Lovenox Last Dose Blood Thinner: Apr 11, 2017 Hypertension Medication: No Home Meds Incl Beta Liam: No Reported Medications Enoxaparin (Lovenox)120 Mg/0.8 Ml [id number] Mg SUBQ BID Ref 0 04/11/17 Warfarin Sodium 10 Mg Ifoqhv02 Mg PO DAILY 30 Days Ref 0 04/07/17 Ferrous Sulfate (Iron)325 Mg Cqknqh337 Mg PO DAILY 04/07/17 Discontinued Reported Medications Dabigatran Etexilate Mesylate (Pradaxa)150 Mg [id number] Mg PO BID 02/07/17 Prednisone (PredniSONE)10 Mg Fqgkos51 Mg PO PRN Ref 0 12/30/16 History History of ENT Problems?: No HEENT History: Denies:: Abnormal Airway Difficult Intubation Dysphagia Hearing Problem Sinus Problem TMJ Denture Type: None Teeth Condition: Within Normal Limits Hx of Heart Problems?: Yes Cardiovascular History: Positive for:: Thrombophlebitis (recently 06/2016 ending in PE both lungs-SEEING DR. PALENCIA-HEMATOLOGY) Denies:: Chest Pain Congestive Heart Failure Coronary Artery Disease Heart Murmur Hypertension Irregular Heartbeat Pacemaker Rheumatic Fever Valvular Heart Disease Hx of Respiratory Problem?: Yes Respiratory History: Positive for:: Dyspnea Pulmonary Embolism Use of C-PAP Machine (SUAD+) Denies:: Asthma COPD Emphysema Hemoptysis Oxygen Administration Tuberculosis Other History/Comment Bilateral PE 06/2016 on warfarin, no hemodynamic compromise at time, symptoms of SOB resolved. Hx Neurologic Problems?: Yes Neurological History: Denies:: Alzheimer's Disease CVA Dementia Dizziness Headaches Multiple Sclerosis Parkinson's Disease Seizures Hx of GI Problems?: Yes Gastrointestinal History: Denies:: Cirrhosis Gastroesphageal Reflux Heartburn Hepatitis Liver Disease Other GI Pertinent History: BLADDER AND KIDNEY CANCER. NEPHRECTOMY Hx of Problems?: Yes Genitourinary History: Positive for:: Urinary Tract Infection (TX W/ CIPRO) Denies:: HX of Hemodialysis Kidney Stones HX of Peritoneal Dialysis: No Other History/Comment RCC s/p L nephrectomy Male Hx: Positive for:: Prostate Problems (BPH) Denies:: Scrotal Mass Testicular Surgery Skin History: Positive for:: History Skin Disorders? (S/P EXC NON-MELANOMA SKIN CA) Denies:: Pressure Ulcers Hx Musculoskeletal Problems?: Yes Musculoskeletal History: Positive for:: Back Injury (back surgery L5 25 years ago) Joint Replacement (total knee replacement right knee) Musculoskeletal Trauma (S/P SHOULDER RPR,ANKLE RPR) Denies:: Fibromyalgia Hx of Psycho/Social Problems?: No Psycho Social History: Denies:: Anxiety Bipolar Disorder Hx Depression Suicide Attempt Hx Surgeries?: Yes (lap band, shoulder, ankle, back surgery, knee surgery,CYSTO ) Hx Any Other Health Problems?: Yes Other History: Positive for:: Cancer (kidney and bladder,SKIN CA) Hospitalization (surgeries PE) Denies:: Endocrine Disease Thyroid Disease History Blood Transfusions: Denies:: Blood Transfuse Reaction Blood Transfusions Hx Diabetes: No Hx Alcohol Use: YesHx Substance Use: No Smoking Status: Never Smoker Have You Smoked inLast 12 mo: No Stop/Bang Treated for Sleep Apnea?: Yes Do You Have a CPAP Machine?: Yes (NOT COMPLIANT) SUAD Risk Assessment: High Risk, =/>3 Yes SUAD Category 4 OutPt Procedure: Yes Risk Assessment Category Category 1A: Patient has history of documented sleep apnea, and HAS NOT received any narcotic, sedative or anesthesia administration during this stay. Category 1B: Patient has history of documented sleep apnea, and HAS received any narcotic , sedative or anesthesia administration during this stay Category 2: Patient has SUSPECTED Obstructive Sleep Apnea, and HAS received any narcotic , sedative or anesthesia administration during this stay. Category 3: Patient has SUSPECTED Obstructive Sleep Apnea and HAS NOT received narcotic, sedative or anesthesia administration during this stay. Category 4: Outpatient in Procedural Areas with known sleep apnea or who screen positive for High Risk via the STOP/BANG questionnaire. Exam Exam Vital Signs Vital Signs Date Time Temp Pulse Resp B/P Pulse Ox O2 Delivery O2 Flow Rate FiO2 04/11/17 07:45 36.6 65 14 128/88 99 Room Air General Appearance: Alert, Oriented X3, Cooperative, No Acute Distress HEENT/AIRWAY: MP 2, Neck Movement (ok), Mouth Opening (ok) Lungs: Clear to Auscultation, Normal Air Movement Heart: Exam Unremarkable, Regular Rate/Rhythm, No Murmurs/Rubs/Gallops Plan Impression Patient chart reviewed, patient interviewed and anesthestic plan with risks, benefits, and alternatives discussed, and informed consent obtained. NPO per Anesth. Guidelines: Yes Vinnie Dickinson MD Apr 11, 2017 08:55
--- NOTE | 2017-04-11 09:00 | PCM.HPANE ---
Patient Data Surgeon Admitting Provider: Attending Provider:En Cartagena MD Primary Care Physician:Suleiamn Noble MD Other Provider: Reason for Visit Iron Deficiency Anemia Ht/WT & BMI Height (Feet): 6 Weight (Kilograms): 106 Body Mass Index 31.00 Allergies Coded Allergies: hydromorphone (Verified Allergy, Severe, severe painful rash with red pus- filled bumps, 01/10/17) Past Anesthesia History Anesthesia History: Denies:: Abnormal Airway, Anesthesia Reactions, Difficult Intubation, Fam Anesthesia Reaction, Fam Malignant Hypertherm, Malignant Hyperthermia Diabetes History Hx Diabetes?: No MRSA MRSA: Yes (hx of more than 5 years ago-, thinks possible now) Medications Blood Thinner: Coumadin, Lovenox Last Dose Blood Thinner: Apr 11, 2017 Hypertension Medication: No Home Meds Incl Beta Liam: No Reported Medications Enoxaparin (Lovenox)120 Mg/0.8 Ml Ntmzkiw327 Mg SUBQ BID Ref 0 04/11/17 Warfarin Sodium 10 Mg Znbvxo41 Mg PO DAILY 30 Days Ref 0 04/07/17 Ferrous Sulfate (Iron)325 Mg Kqmrxf903 Mg PO DAILY 04/07/17 Discontinued Reported Medications Dabigatran Etexilate Mesylate (Pradaxa)150 Mg [place]073 Mg PO BID 02/07/17 Prednisone (PredniSONE)10 Mg Crtqem37 Mg PO PRN Ref 0 12/30/16 History History of ENT Problems?: No HEENT History: Denies:: Abnormal Airway Difficult Intubation Dysphagia Hearing Problem Sinus Problem TMJ Denture Type: None Teeth Condition: Within Normal Limits Hx of Heart Problems?: Yes Cardiovascular History: Positive for:: Thrombophlebitis (recently 06/2016 ending in PE both lungs-SEEING DR. PALENCIA-HEMATOLOGY) Denies:: Chest Pain Congestive Heart Failure Coronary Artery Disease Heart Murmur Hypertension Irregular Heartbeat Pacemaker Rheumatic Fever Valvular Heart Disease Hx of Respiratory Problem?: Yes Respiratory History: Positive for:: Dyspnea Pulmonary Embolism Use of C-PAP Machine (SUAD+) Denies:: Asthma COPD Emphysema Hemoptysis Oxygen Administration Tuberculosis Hx Neurologic Problems?: Yes Neurological History: Denies:: Alzheimer's Disease CVA Dementia Dizziness Headaches Multiple Sclerosis Parkinson's Disease Seizures Hx of GI Problems?: Yes Other GI Pertinent History: BLADDER AND KIDNEY CANCER. NEPHRECTOMY Hx of Problems?: Yes Genitourinary History: Positive for:: Urinary Tract Infection (TX W/ CIPRO) Denies:: HX of Hemodialysis Kidney Stones HX of Peritoneal Dialysis: No Male Hx: Positive for:: Prostate Problems (BPH) Denies:: Scrotal Mass Testicular Surgery Skin History: Positive for:: History Skin Disorders? (S/P EXC NON-MELANOMA SKIN CA) Denies:: Pressure Ulcers Hx Musculoskeletal Problems?: Yes Musculoskeletal History: Positive for:: Back Injury (back surgery L5 25 years ago) Joint Replacement (total knee replacement right knee) Musculoskeletal Trauma (S/P SHOULDER RPR,ANKLE RPR) Denies:: Fibromyalgia Hx of Psycho/Social Problems?: No Psycho Social History: Denies:: Anxiety Bipolar Disorder Hx Depression Suicide Attempt Hx Surgeries?: Yes (lap band, shoulder, ankle, back surgery, knee surgery,CYSTO ) Hx Any Other Health Problems?: Yes Other History: Positive for:: Cancer (kidney and bladder,SKIN CA) Hospitalization (surgeries PE) Denies:: Endocrine Disease Thyroid Disease History Blood Transfusions: Denies:: Blood Transfuse Reaction Blood Transfusions Hx Diabetes: No Hx Alcohol Use: YesHx Substance Use: No Smoking Status: Never Smoker Have You Smoked inLast 12 mo: No Stop/Bang Treated for Sleep Apnea?: Yes Do You Have a CPAP Machine?: Yes (NOT COMPLIANT) SUAD Risk Assessment: High Risk, =/>3 Yes SUAD Category 4 OutPt Procedure: Yes Risk Assessment Category Category 1A: Patient has history of documented sleep apnea, and HAS NOT received any narcotic, sedative or anesthesia administration during this stay. Category 1B: Patient has history of documented sleep apnea, and HAS received any narcotic , sedative or anesthesia administration during this stay Category 2: Patient has SUSPECTED Obstructive Sleep Apnea, and HAS received any narcotic , sedative or anesthesia administration during this stay. Category 3: Patient has SUSPECTED Obstructive Sleep Apnea and HAS NOT received narcotic, sedative or anesthesia administration during this stay. Category 4: Outpatient in Procedural Areas with known sleep apnea or who screen positive for High Risk via the STOP/BANG questionnaire. High Risk, =/>3 Yes Exam Exam Vital Signs Vital Signs Date Time Temp Pulse Resp B/P Pulse Ox O2 Delivery O2 Flow Rate FiO2 04/11/17 07:45 36.6 65 14 128/88 99 Room Air General Appearance: Alert, Oriented X3, Cooperative, No Acute Distress HEENT/AIRWAY: MP 2, Neck Movement (ok), Mouth Opening (ok) Lungs: Clear to Auscultation, Normal Air Movement Heart: Exam Unremarkable, Regular Rate/Rhythm, No Murmurs/Rubs/Gallops Plan Impression Patient chart reviewed, patient interviewed and anesthestic plan with risks, benefits, and alternatives discussed, and informed consent obtained. NPO per Anesth. Guidelines: Yes ASA Physical Status: ASA3 Severe Disease Anesthetic Plan: MAC HP Complete Prior to Induction: Yes Vinnie Dickinson MD Apr 11, 2017 09:00
[2017-04-11 09:31] VITALS: BP 89/56; PULSE 64; O2SAT 97
[2017-04-11 09:34] VITALS: BP 94/56; PULSE 62; RESP 14; O2SAT 100
[2017-04-11 09:43] VITALS: BP 141/88; PULSE 68; RESP 14; O2SAT 100
--- NOTE | 2017-04-11 13:55 | ENDO ---
[address] [address] ENDOSCOPY PROCEDURE PATIENT: LOGAN ESCALANTE : 1960 MR#: [id number] ADMIT: 04/11/2017 JOB ID: [id number] DATE OF SERVICE: 04/11/2017 TYPE OF OPERATION: Esophagogastroduodenoscopy, biopsy. Colonoscopy. PREOPERATIVE DIAGNOSIS(ES): Iron deficiency anemia. POSTOPERATIVE DIAGNOSES: 1. Mild nonerosive gastritis, status post biopsy. 2. Diverticulosis, mild in the sigmoid and cecum. 3. Small internal hemorrhoids. ANESTHESIA: Monitored anesthesia care. COMPLICATIONS: None. BLOOD LOSS: Minimal. DESCRIPTION OF PROCEDURE: After risks and benefits explained to the patient, informed consent was obtained. After anesthesia administered, upper endoscope was then inserted in the mouth, intubated into the esophagus, stomach, second portion of duodenum. Mucosa carefully examined. After procedure was done, the scope withdrawn, procedure terminated. FINDINGS: Upon inspection of the esophagus, the esophagus was normal without masses, ulcers, or lesions. Z-line located at 40 cm from incisors. Upon entering the stomach, stomach was also normal without masses or lesions except for mild nonerosive gastritis. Retroflexion was normal. Duodenal bulb, first and second portion were normal. Biopsies taken of the antrum, body and distal esophagus. Upon inspection of the anus, no masses, hemorrhoids, ulcers, or fissures that were seen. Throughout the entire examination, there was mild sigmoid diverticulosis and the cecum had diverticulosis. No polyps or masses were seen. Intubation of TI was normal. The terminal ileum was normal. retroflexion showed small internal hemorrhoids. IMPRESSION: 1. Small internal hemorrhoids. 2. Diverticulosis in the sigmoid and cecum. 3. Mild nonerosive gastritis. RECOMMENDATION: Await pathology results. High-fiber diet. Follow up in GI clinic as needed.
--- NOTE | 2017-04-13 16:20 | PATH ---
SURGICAL PATHOLOGY Attending Physician:En Cartagena MD CASE STATUS: Signed Out PATIENT NAME: LOGAN ESCALANTE PID: [id number] : 1960 DATE COLLECTED:04/11/2017 00:00 SPECIMEN: 1: Duodenum, Biopsy 2: Stomach, Antrum, Biopsy 3: Gastric, Biopsy CLINICAL HISTORY: RULE OUT H PYLORI 1). DUODENUM BIOPSY 2). ANTRUM BIOPSY 3). GASTRIC BODY BIOPSY FINAL DIAGNOSIS: 1. Duodenum, Biopsy: Small bowel mucosa with no diagnostic abnormality. Negative for active inflammation, features of sprue, dysplasia and malignancy. 2. Stomach, Antrum, Biopsy: Antral mucosa with no diagnostic abnormality. Negative for Helicobacter organisms. Negative for intestinal metaplasia. Negative for dysplasia and malignancy. 3. Stomach, Body, Biopsy: Body-type mucosa with no diagnostic abnormality. Negative for intestinal metaplasia. Negative for dysplasia and malignancy. ICD10: D50.9 GROSS DESCRIPTION: The specimen is received in three formalin filled containers labeled with the patient's name. 1). The specimen is labeled "duodenum" and consists of 2 portions of tissue which aggregate to 0.3 x 0.3 x 0.2 CM. The specimen is entirely submitted in cassette 1A. 2). The specimen is labeled "antrum" and consists of a 0.3 x 0.3 x 0.2 CM portion of tissue which is entirely submitted in cassette 2A. 3). The specimen is labeled "gastric body" and consists of 2 portions of tissue which aggregate to 0.4 x 0.3 x 0.2 CM. The specimen is entirely submitted in cassettes 3A. 04/11/2017DC ICD-9 CODES: CPT CODES: 1: 28380 2: 28068 3: 67792 Electronically Signed Out Mary Guillory MD [facility] [address], [place] [address] Technical component performed at [facility], [address] [place] [address] Ave[address], [place], [address]
== END | disposition home or self-care (01) ==
LOC: END 00:23
PROVIDERS: ATTEND Internal Medicine Gastroenterology
DX: D50.9 Iron deficiency anemia, unspecified (principal); K57.30 Diverticulosis of large intestine without perforation or abscess without bleeding; K64.8 Other hemorrhoids; K29.70 Gastritis, unspecified, without bleeding; G47.33 Obstructive sleep apnea (adult) (pediatric); Z86.711 Personal history of pulmonary embolism; Z79.01 Long term (current) use of anticoagulants
CPT/HCPCS: 43239; 45378; J2704; J7030